=== PATIENT | male | born 1960 | race Caucasian/White ===

== ENCOUNTER 2017-02-14 06:30 | Day surgery (SDC) | payer BC ==
[~2017-02-14] VITALS: Ht 175.3 cm; Wt 98.4 kg
[~2017-02-14 06:30] MED LIST: ALEVE220 MG PO; ASPIR-LOW81 MG PO; ATENOLOL50 MG PO; NORVASC10 MG PO; OMEPRAZOLE20 MG PO; REVATIO20 MG PO; TYLENOL325 MG PO
--- NOTE | 2017-02-14 08:08 | NUR ---
02/14/17 0808 Marge Villegas REPORT FROM ENDO RN. AWAKE ON AND OFF ASKING QUESTIONS.
--- NOTE | 2017-02-16 16:42 | OR ---
[facility] [address] [facility], [place] [address] Signed DATE OF OPERATION: 02/14/2017 SURGEON: Ambrocio Guajardo MD PREOPERATIVE DIAGNOSIS: Screening. POSTOPERATIVE DIAGNOSIS: 1. 4 mm polyp at 25 cm. 2. 4 mm polyp at 6 cm. 3. Minimal sigmoid diverticulosis. 4. Minimal to moderate internal hemorrhoids. ESTIMATED BLOOD LOSS: None. INDICATIONS: Mari is a 57-year-old gentleman asked to see me for his initial screening colonoscopy. He has no lower GI complaints. There is no family history of colon cancer or polyps. In the office, I gave Mari a pamphlet on colonoscopy. We looked at that together and he understands the nature of the colonoscopy along with its risks including, but not limited to gas, bloating, crampy abdominal pain, bleeding, perforation requiring surgery, and missed diagnosis. He also understands the need for IV conscious sedation. He expressed understanding and wished to proceed. PROCEDURE NOTE: Mari was taken into our endoscopy suite and placed in the left lateral decubitus position. He was given preoperative antibiotics because of the amount of metal he has in his left leg after his sledding accident. After this, he was given divided doses of 9 mg of Versed and 175 mcg of Fentanyl. Even then, he woke up immediately upon termination of this procedure. Once he was adequately sedated, a digital rectal exam was performed and this was unremarkable including the prostate. The adult colonoscope was then introduced and advanced all the way around into the cecum under direct visualization of camera without difficulty. His prep was good. The scope was then slowly withdrawn. The 2 polyps were removed easily with hot biopsy forceps. We did see just a few diverticula in the sigmoid colon. They were moderate in size, few in number, and scattered about. Upon retroflexion of the scope in the rectum, he does have minimal to moderate standard internal hemorrhoid columns. After this, the gas was suctioned out and the colonoscope removed. Mari tolerated the procedure quite well. Electronically Signed By: AMBROCIO GUAJARDO MD 02/16/17 1642 PATIENT NAME: MARI HERNANDEZ OPERATIVE REPORT DATE OF : 60 PHYSICIAN: AMBROCIO GUAJARDO MD REPORT #: [id number] REPORT IS CONFIDENTIAL AND NOT TO BE RELEASED WITHOUT AUTHORIZATION [address] [address] Signed RECOMMENDATIONS: I will see Mari back in my office in 7-14 days to review his results. He can resume his aspirin in 1 week. MD VEDA Parsons/AMINATA /[id number] cc: Teressa Ortega PA-C Electronically Signed By: AMBROCIO GUAJARDO MD 02/16/17 1642 PATIENT NAME: MARI HERNANDEZ OPERATIVE REPORT DATE OF : 60 PHYSICIAN: AMBROCIO GUAJARDO MD REPORT #: [id number] REPORT IS CONFIDENTIAL AND NOT TO BE RELEASED WITHOUT AUTHORIZATION
== END 2017-02-14 08:55 | disposition home or self-care (01) ==
LOC: DS 06:30 → OPS 06:30 → DS 06:45 → OPS 08:55
PROVIDERS: Colon & Rectal Surgery
PROC: 0DBE8ZX Excision of Large Intestine, Via Natural or Artificial Opening Endoscopic, Diagnostic (ICD-10-PCS; principal; 2017-02-14 06:45)
DX: Z12.11 Encounter for screening for malignant neoplasm of colon (principal); K63.5 Polyp of colon; K57.30 Diverticulosis of large intestine without perforation or abscess without bleeding; K64.8 Other hemorrhoids; I10 Essential (primary) hypertension; K21.9 Gastro-esophageal reflux disease without esophagitis; E78.5 Hyperlipidemia, unspecified; E11.9 Type 2 diabetes mellitus without complications; Z98.890 Other specified postprocedural states; Z98.52 Vasectomy status; Z79.899 Other long term (current) drug therapy; Z79.82 Long term (current) use of aspirin
CPT/HCPCS: 99152; 99153; J2250; J3010; J7120

== ENCOUNTER 2017-05-26 20:42 | Emergency (ER) | payer OTHER ==
[~2017-05-26] VITALS: Ht 175.3 cm; Wt 99.8 kg
--- OUTSIDE RECORDS SUMMARY | 2017-05-26 20:47 | XMS | Clinical Summary ---
Demographics + + + | Address | [address] | | | [place] [address] | + + + | Home Phone | | + + + | Preferred Language | Unknown | + + + | Marital Status | | + + + | Jainism Affiliation | Unknown | + + + | Race | Unknown | + + + | Ethnic Group | Unknown | + + + Author + + + | Author | [facility] | + + + | Organization | [facility] | + + + | Address | Unknown | + + + | Phone | Unavailable | + + + Support + + + + + | Name | Relationship | Address | Phone | + + + + + | Meka Hernandez | ECON | [address] | | | | | [place] | | | | | [address] | | + + + + + Care Team Providers + +------+ + | Care Computer Programmer Name | Role | Phone | + +------+ + | Teressa Su | PP | Unavailable | + +------+ + Allergies No Known Allergies Current Medications + + + +---------+------+------+-------+ | Prescription | Sig. | Disp. | Refills | Star | End | Statu | | | | | | t | Date | s | | | | | | Date | | | + + + +---------+------+------+-------+ | omeprazole | Take 20 mg by mouth | | | | | Activ | | (PRILOSEC) 20 MG | every morning before | | | | | e | | capsule | breakfast. | | | | | | + + + +---------+------+------+-------+ | sildenafil | Take 20 mg by mouth | | | | | Activ | | (REVATIO) 20 MG | as needed. | | | | | e | | tablet | | | | | | | + + + +---------+------+------+-------+ | amLODIPine | Take 10 mg by mouth | | | | | Activ | | (NORVASC) 10 MG | daily. | | | | | e | | tablet | | | | | | | + + + +---------+------+------+-------+ | diazePAM (VALIUM) | Take 5 mg by mouth | | | | | Activ | | 5 MG tablet | every 8 (eight) | | | | | e | | | hours as needed for | | | | | | | | Anxiety. | | | | | | + + + +---------+------+------+-------+ | aspirin 81 MG | Take 81 mg by mouth | | | | | Activ | | tablet | daily. | | | | | e | + + + +---------+------+------+-------+ | ONETOUCH DELICA | | | | 01/3 | | Activ | | GRETTA 33G MISC | | | | 0/20 | | e | | | | | | 17 | | | + + + +---------+------+------+-------+ | ONE TOUCH ULTRA | | | | 01/3 | | Activ | | TEST test strip | | | | 0/20 | | e | | | | | | 17 | | | + + + +---------+------+------+-------+ | vitamin D2, | | | | 02/1 | | Activ | | ergocalciferol, | | | | 7/20 | | e | | [id number] units capsule | | | | 17 | | | + + + +---------+------+------+-------+ | ciprofloxacin | | | | 05/2 | | Activ | | (CIPRO) 500 MG | | | | 6/20 | | e | | tablet | | | | 17 | | | + + + +---------+------+------+-------+ | naproxen | Take 1 tablet by | 60 | 3 | 06 | | Activ | | (NAPROSYN) 500 MG | mouth 2 (two) times | tablet | | 11/07 | | e | | tablet | daily with meals. | | | 17 | | | + + + +---------+------+------+-------+ | POST-OP SHOE | Fit and instruct | 1 each | 0 | 07/21 | | Activ | | (medical | patient in use of | | | 0/20 | | e | | device)Indications: | device. | | | 17 | | | | Closed displaced | | | | | | | | bicondylar fracture | | | | | | | | of left tibia with | | | | | | | | routine healing, | | | | | | | | Traumatic | | | | | | | | compartment syndrome | | | | | | | | of left lower | | | | | | | | extremity, sequela, | | | | | | | | Disruption of | | | | | | | | external surgical | | | | | | | | wound, sequela | | | | | | | + + + +---------+------+------+-------+ | naproxen (EC | Take 1 tablet by | 60 | 11 | 08/0 | 08/0 | Activ | | NAPROSYN) 500 MG EC | mouth 2 (two) times | tablet | | 1/20 | 1/20 | e | | tabletIndications: | daily with meals. | | | 17 | 18 | | | Left leg pain | | | | | | | + + + +---------+------+------+-------+ | ANKLE FOOT | Fit and instruct | 1 each | 0 | 10/0 | | Activ | | ORTHOTIC (medical | patient in use of | | | 4/20 | | e | | device) | device. | | | 17 | | | + + + +---------+------+------+-------+ | Nerve Stimulator | 1 Device by Does not | 1 | 0 | 10/0 | | Activ | | (STANDARD TENS) KIRK | apply route 3 | Device | | 4/20 | | e | | | (three) times daily. | | | 17 | | | + + + +---------+------+------+-------+ | atenolol | | | | 12/0 | | Activ | | (TENORMIN) 50 MG | | | | 4/20 | | e | | tablet | | | | 17 | | | + + + +---------+------+------+-------+ | BONE STIMULATOR | Dispense and provide | 1 each | 0 | 03/0 | | Activ | | (medical educator) | instruction as | | | 6/20 | | e | | | needed. | | | 18 | | | + + + +---------+------+------+-------+ | clindamycin | Take 1 capsule by | 40 | 0 | 03/2 | 04/0 | Expir | | (CLEOCIN) 300 MG | mouth every 6 (six) | capsule | | 2/20 | 1/20 | ed | | capsule | hours for 10 days. | | | 18 | 18 | | | | With probiotics | | | | | | + + + +---------+------+------+-------+ + + +-------+ +------+------+-------+ | Hospital, Clinic, or | Ordered | Route | Frequency | Star | End | Statu | | Other Facility | Dose | | | t | Date | s | | Administered | | | | Date | | | | Medication | | | | | | | + + +-------+ +------+------+-------+ | lidocaine | | TP | PRN | 03/2 | 03/2 | Ended | | (XYLOCAINE) 4 % | | | | / | 20 | | | external solution | | | | 18 | 18 | | + + +-------+ +------+------+-------+ | lidocaine | | TP | PRN | 03/2 | 03/3 | Ended | | (XYLOCAINE) 4 % | | | | 11/07 | 0/20 | | | external solution | | | | 18 | 18 | | + + +-------+ +------+------+-------+ | lidocaine | | TP | PRN | 04/0 | 04/0 | Ended | | (XYLOCAINE) 4 % | | | | /20 | 6/20 | | | external solution | | | | 18 | 18 | | + + +-------+ +------+------+-------+ Active Problems + + + | Problem | Noted Date | + + + | Left leg swelling | 05/23/2017 | + + + | Skin ulcer of left calf, limited to breakdown of skin (HCC) | 05/09/2017 | + + + | Abscess of left leg | 05/09/2017 | + + + | Open wound of left lower leg | 05/09/2017 | + + + | HTN (hypertension) | 04/09/2017 | + + + | GERD (gastroesophageal reflux disease) | 04/09/2017 | + + + | Skin ulcer of left calf with fat layer exposed (HCC) | 04/09/2017 | + + + | Surgical wound, non healing | 04/09/2017 | + + + | Venous insufficiency | 04/09/2017 | + + + | Arthrofibrosis of knee joint | 07/06/2016 | + + + | Compartment syndrome of left lower extremity (HCC) | 02/23/2016 | + + + | Closed bicondylar fracture of left tibial plateau | 02/21/2016 | + + + Encounters +--------+ + + + + | Date | Type | Specialty | Care Team | Description | +--------+ + + + + | 05/23/ | Emergency | | Lamine Lainez, | Lower extremity | | 2017 | | | Jordy Patton | betty, franci, | | | | | MD Dylan | with unspecified | | | | | | severity (HCC) | | | | | | (Primary Dx) | +--------+ + + + + | 05/23/ | Office | | Teressa Su | Open wound of left | | 2017 | Visit | | JORGE Richardson, | lower leg, | | | | | Laureen Mathur MD | subsequent encounter | | | | | | (Primary Dx); Skin | | | | | | ulcer of left calf, | | | | | | limited to breakdown | | | | | | of skin ([facility]); | | | | | | Venous | | | | | | insufficiency; | | | | | | Non-healing surgical | | | | | | wound, subsequent | | | | | | encounter; Left leg | | | | | | swelling; Abscess of | | | | | | left leg | +--------+ + + + + | 05/23/ | Lab | | Alfredo Driscoll, | Non-healing surgical | | 2017 | Requisition | | Lettuce Cutter | wound, subsequent | | | | | | encounter; Open | | | | | | wound of left lower | | | | | | leg, subsequent | | | | | | encounter | +--------+ + + + + | 05/23/ | Orders Only | | Laureen Vogt, | Abscess of left leg | | 2018 | | | MD | (Primary Dx) | +--------+ + + + + | 05/16/ | Office | | Teressa Su | Skin ulcer of left | | 2018 | Visit | | JORGE Richardson, | calf, limited to | | | | | Laureen Mathur MD | breakdown of skin | | | | | | ([facility]) (Primary Dx); | | | | | | Open wound of left | | | | | | lower leg, | | | | | | subsequent | | | | | | encounter; Venous | | | | | | insufficiency; | | | | | | Non-healing surgical | | | | | | wound, subsequent | | | | | | encounter | +--------+ + + + + | 05/14/ | Telephone | | Vinicio Russell RN | | | 2017 | | | | | +--------+ + + + + | 05/09/ | Office | | Darrell Arce, | Closed displaced | | 2017 | Visit | | MD | bicondylar fracture | | | | | | of left tibia with | | | | | | nonunion, subsequent | | | | | | encounter (Primary | | | | | | Dx); Postoperative | | | | | | wound dehiscence, | | | | | | subsequent encounter | +--------+ + + + + | 05/09/ | Hospital | | Laureen Vogt, | Skin ulcer of left | | 2018 | Encounter | | MD | calf with fat layer | | | | | | exposed (HCC) | +--------+ + + + + | 05/09/ | Hospital | | Laureen Vogt, | Skin ulcer of left | | 2018 | Encounter | | MD | calf with fat layer | | | | | | exposed (HCC) | +--------+ + + + + | 05/09/ | Office | | Teressa Su | Skin ulcer of left | | 2018 | Visit | | JORGE Richardson, | calf, limited to | | | | | Laureen Mathur MD | breakdown of skin | | | | | | (HCC) (Primary Dx); | | | | | | Skin ulcer of left | | | | | | calf with fat layer | | | | | | exposed (HCC); | | | | | | Non-healing surgical | | | | | | wound, subsequent | | | | | | encounter; Venous | | | | | | insufficiency; | | | | | | Abscess of left leg; | | | | | | Open wound of left | | | | | | lower leg, initial | | | | | | encounter | +--------+ + + + + | 05/09/ | Lab | | Ida Garrido, | Skin ulcer of left | | 2017 | Requisition | | Lettuce Cutter | calf with fat layer | | | | | | exposed (HCC); | | | | | | Non-healing surgical | | | | | | wound, subsequent | | | | | | encounter | +--------+ + + + + | 05/09/ | Orders Only | | Laureen Vogt, | | | 2017 | | | MD | | +--------+ + + + + | 05/02/ | Telephone | | Darrell Arce, | | | 2017 | | | MD | | +--------+ + + + + | 04/26/ | Hospital | | See, Medical | Pain | | 2018 | Encounter | | Record | | +--------+ + + + + | 04/26/ | Ancillary | | See, Medical | Pain | | 2018 | Orders | | Record | | +--------+ + + + + | 04/24/ | Telephone | | Letha Arthur, | | | 2018 | | | VENDETTE | | +--------+ + + + + | 04/23/ | Office | | Teressa Su | Skin ulcer of left | | 2018 | Visit | | JORGE Richardson, | calf with fat layer | | | | | Laureen Mathur MD | exposed (HCC) | | | | | | (Primary Dx); | | | | | | Non-healing surgical | | | | | | wound, subsequent | | | | | | encounter; Venous | | | | | | insufficiency | +--------+ + + + + | 04/23/ | Office | | Darrell Arce, | Closed displaced | | 2018 | Visit | | MD | bicondylar fracture | | | | | | of left tibia with | | | | | | nonunion, subsequent | | | | | | encounter (Primary | | | | | | Dx) | +--------+ + + + + | 04/09/ | Hospital | | Laureen Vogt, | Skin ulcer of left | | 2017 | Encounter | | MD | calf with fat layer | | | | | | exposed (HCC) | +--------+ + + + + | 04/09/ | Office | | Teressa Su | Skin ulcer of left | | 2017 | Visit | | JORGE Richardson, | calf with fat layer | | | | | Laureen Mathur MD | exposed (HCC) | | | | | | (Primary Dx); | | | | | | Essential | | | | | | hypertension; | | | | | | Gastroesophageal | | | | | | reflux disease, | | | | | | esophagitis presence | | | | | | not specified; | | | | | | Non-healing surgical | | | | | | wound, initial | | | | | | encounter; Venous | | | | | | insufficiency | +--------+ + + + + | 04/09/ | Lab | | Alyson, Betty | Skin ulcer of left | | 2018 | Requisition | | J, Lettuce Cutter | calf with fat layer | | | | | | exposed (HCC) | +--------+ + + + + from Last 3 Months Family History + + +------+ + | Medical History | Relation | Name | Comments | + + +------+ + | Diabetes type II | Father | | | + + +------+ + | Heart defect | Father | | | + + +------+ + | Hypertension | Father | | | + + +------+ + | Malig hypertherm | Neg Hx | | | + + +------+ + + +------+--------+ + | Relation | Name | Status | Comments | + +------+--------+ + | Father | | Alive | | + +------+--------+ + | Mother | | Alive | | + +------+--------+ + Social History + +-------+ +--------+ + | Tobacco Use | Types | Packs/Day | Years | Date | | | | | Used | | + +-------+ +--------+ + | Former Smoker | | | | Quit: 11/23/2009 | + +-------+ +--------+ + + +---+---+---+ | Smokeless Tobacco: | | | | | Never Used | | | | + +---+---+---+ + + +---------+ + | Alcohol Use | Drinks/We | oz/Week | Comments | | | ek | | | + + +---------+ + | Yes | | | occasional | + + +---------+ + + + + | Sex Assigned at | Date Recorded | | | | + + + | Not on file | | + + + Last Filed Vital Signs + + + + | Vital Sign | Reading | Time Taken | + + + + | Blood Pressure | 133/77 | 05/23/2017 7:24 PM PDT | + + + + | Pulse | 65 | 05/23/2017 7:24 PM PDT | + + + + | Temperature | 36.9 C (98.5 F) | 05/23/2017 7:24 PM PDT | + + + + | Respiratory Rate | 18 | 05/23/2017 7:24 PM PDT | + + + + | Oxygen Saturation | 96% | 05/23/2017 7:24 PM PDT | + + + + | Inhaled Oxygen | - | - | | Concentration | | | + + + + | Weight | 98.9 kg (218 lb 0.6 | 05/23/2017 4:53 PM PDT | | | oz) | | + + + + | Height | 175.3 cm (5' 9") | 05/09/2017 11:41 AM PDT | + + + + | Body Mass Index | 32.2 | 05/23/2017 4:53 PM PDT | + + + + Plan of Treatment +--------+---------+ + + + | Date | Type | Specialty | Care Team | Description | +--------+---------+ + + + | 06/13/ | Office | | Teressa Su | | | 2017 | Visit | | JORGE Richardson [address] | | | | | | [address] [address] | | | | | | [place] [address] | | | | | | [phone] | | | | | | | | | | | | Laureen Vogt MD | | | | | | [address] | | | | | | [place] [address] | | | | | | [phone] | | | | | | | | +--------+---------+ + + + + + + + + | Health Maintenance | Due Date | Last Done | Comments | + + + + + | Vaccine: | | | | | Dtap/Tdap/Td (1 - | 9 | | | | Tdap) | | | | + + + + + | Colon Cancer | | | | | Screening | 0 | | | | (Colonoscopy) | | | | + + + + + | Vaccine: Influenza | | | | | (Season Ended) | 8 | | | + + + + + Implants + +------+--------+ +--------+--------+--------+ | Implanted | Type | Area | Manufacture | Device | Expira | Model | | | | | r | | tion | / | | | | | | Identi | Date | Serial | | | | | | fier | | / Lot | + +------+--------+ +--------+--------+--------+ | Screw Schanz S/T [id number] - | | Left: | SYNTHES - | | | 294.73 | | SnaImplanted: Qty: 2 on | | Leg | SYNT | | | / / | | 02/21/2016 by Claude, | | | | | | | | MD Darrell | | | | | | | + +------+--------+ +--------+--------+--------+ | Screw Schanz S/T [id number] - | | Left: | SYNTHES - | | | 294.75 | | SnaImplanted: Qty: 2 on | | Leg | SYNT | | | / / | | 02/21/2016 by Claude, | | | | | | | | MD Darrell | | | | | | | + +------+--------+ +--------+--------+--------+ | Post Fix Outrig 30deg 11mm - | | Left: | SYNTHES - | | | 390.01 | | [id number]: Qty: 4 on | | Leg | SYNT | | | 2 / / | | 02/21/2016 by Claude, | | | | | | | | MD Darrell | | | | | | | + +------+--------+ +--------+--------+--------+ | Screw Crtx Slf-Tp Strdr 2.4x9 | | Left: | SYNTHES - | | | 201.75 | | - Sn/AImplanted: Qty: 1 on | | Leg | SYNT | | | 9 | | 04/04/2016 by Claude, | | | | | | / | | MD Darrell | | | | | | 9 / | + +------+--------+ +--------+--------+--------+ | Screw Torie Slf-Tp Strdr 2.4x8 | | Left: | SYNTHES - | | | 212.80 | | - Sn/AImplanted: Qty: 2 on | | Leg | SYNT | | | 8 | | 04/04/2016 by Claude, | | | | | | /[id number] | | MD Darrell | | | | | | 8 / | + +------+--------+ +--------+--------+--------+ | Screw Torie Slf-Tp Strdr 2.4x9 | | Left: | SYNTHES - | | | 212.80 | | - Sn/AImplanted: Qty: 1 on | | Leg | SYNT | | | 9 | | 04/04/2016 by Claude, | | | | | | / | | MD Darrell | | | | | | 9 / | + +------+--------+ +--------+--------+--------+ | Screw Torie Slf-Tp Strdr 2.4x10 | | Left: | SYNTHES - | | | 212.81 | | - Sn/AImplanted: Qty: 2 on | | Leg | SYNT | | | 0 | | 04/04/2016 by Claude, | | | | | | /[id number] | | MD Darrell | | | | | | 0 /N/A | + +------+--------+ +--------+--------+--------+ | Screw Torie Slf-Tp Strdr 2.4x12 | | Left: | SYNTHES - | | | 212.81 | | - Sn/AImplanted: Qty: 1 on | | Leg | SYNT | | | 2 | | 04/04/2016 by Claude, | | | | | | / | | MD Darrell | | | | | | 2 / | + +------+--------+ +--------+--------+--------+ | Screw Torie Slf-Tp Strdr 2.4x14 | | Left: | SYNTHES - | | | 212.81 | | - Sn/AImplanted: Qty: 2 on | | Leg | SYNT | | | 4 | | 04/04/2016 by Claude, | | | | | | / | | MD Darrell | | | | | | 4 / | + +------+--------+ +--------+--------+--------+ | Screw Crtx T8 Strdr 2.7x20mm | | Left: | SYNTHES - | | | 202.88 | | - Sn/AImplanted: Qty: 1 on | | Leg | SYNT | | | 0 | | 04/04/2016 by Claude, | | | | | | / | | MD Darrell | | | | | | 0 / | + +------+--------+ +--------+--------+--------+ | Screw Crtx T8 Strdr 2.7x28mm | | Left: | SYNTHES - | | | 202.88 | | - Sn/AImplanted: Qty: 3 on | | Leg | SYNT | | | 8 | | 04/04/2016 by Claude, | | | | | | / | | MD Darrell | | | | | | 8 / | + +------+--------+ +--------+--------+--------+ | Screw Crtx T8 Strdr 2.7x30mm | | Left: | SYNTHES - | | | 202.89 | | - Sn/AImplanted: Qty: 1 on | | Leg | SYNT | | | 0 | | 04/04/2016 by Claude, | | | | | | / | | MD Darrell | | | | | | 0 / | + +------+--------+ +--------+--------+--------+ | Screw Torie Slf-Tp Strdr 2.7x10 | | Left: | SYNTHES - | | | 202.21 | | - Sn/AImplanted: Qty: 3 on | | Leg | SYNT | | | 0 | | 04/04/2016 by Claude, | | | | | | / | | MD Darrell | | | | | | 0 / | + +------+--------+ +--------+--------+--------+ | Screw Torie Slf-Tp Strdr 2.7x12 | | Left: | SYNTHES - | | | 202.21 | | - Sn/AImplanted: Qty: 1 on | | Leg | SYNT | | | 2 | | 04/04/2016 by Claude, | | | | | | / | | MD Darrell | | | | | | 2 / | + +------+--------+ +--------+--------+--------+ | Screw Crtx Slf-Tp Strdr | | Left: | SYNTHES - | | | 201.78 | | 2.4x32 - Sn/AImplanted: Qty: | | Leg | SYNT | | | 2 | | 1 on 04/04/2016 by Claude, | | | | | | / | | MD Darrell | | | | | | 2 / | + +------+--------+ +--------+--------+--------+ | Screw Torie Slf-Tp Strdr 2.4x11 | | Left: | SYNTHES - | | | 212.81 | | - Sn/AImplanted: Qty: 1 on | | Leg | SYNT | | | 1 | | 04/04/2016 by Claude, | | | | | | /[id number] | | MD Darrell | | | | | | 1 / | + +------+--------+ +--------+--------+--------+ | Screw Torie Slf-Tp Strdr 2.4x13 | | Left: | SYNTHES - | | | 212.81 | | - Sn/AImplanted: Qty: 1 on | | Leg | SYNT | | | 3 | | 04/04/2016 by Claude, | | | | | | /[id number] | | MD Darrell | | | | | | 3 / | + +------+--------+ +--------+--------+--------+ | Plate T Lcp 2.4 2h Hd 7h Shft | | Left: | SYNTHES - | | | 249.67 | | - Sn/AImplanted: Qty: 1 on | | Leg | SYNT | | | 0 | | 04/04/2016 by Claude, | | | | | | /[id number] | | MD Darrell | | | | | | 0 / | + +------+--------+ +--------+--------+--------+ | Screw Torie Slf-Tp Strdr 2.4x20 | | Left: | SYNTHES - | | | 212.82 | | - Sn/AImplanted: Qty: 1 on | | Leg | SYNT | | | 0 | | 04/04/2016 by Claude, | | | | | | / | | MD Darrell | | | | | | 0 / | + +------+--------+ +--------+--------+--------+ | Plate Tib Prox Sm 14h Lt | | Left: | SYNTHES - | | | 02.127 | | 237mm - Sn/AImplanted: Qty: 1 | | Leg | SYNT | | | .261 | | on 04/04/2016 by Claude, | | | | | | / | | MD Darrell | | | | | | 261 / | + +------+--------+ +--------+--------+--------+ | Screw Torie Slf-Tp Ss 3.5x46mm | | Left: | SYNTHES - | | | 212.13 | | - Sn.AImplanted: Qty: 1 on | | Leg | SYNT | | | 6 | | 04/04/2016 by Claude, | | | | | | / | | MD Darrell | | | | | | 6 / | + +------+--------+ +--------+--------+--------+ | Screw Torie Slf-Tp Ss 3.5x36mm | | Left: | SYNTHES - | | | 212.11 | | - Sn/AImplanted: Qty: 1 on | | Leg | SYNT | | | 5 | | 04/04/2016 by Claude, | | | | | | / | | MD Darrell | | | | | | 5 / | + +------+--------+ +--------+--------+--------+ | Screw Torie Slf-Tp Ss 3.5x40mm | | Left: | SYNTHES - | | | 212.11 | | - Sn/AImplanted: Qty: 1 on | | Leg | SYNT | | | 7 | | 04/04/2016 by Claude, | | | | | | / | | MD Darrell | | | | | | 7 / | + +------+--------+ +--------+--------+--------+ | Screw Torie Slf-Tp Ss 3.5x38mm | | Left: | SYNTHES - | | | 212.11 | | - Sn/AImplanted: Qty: 1 on | | Leg | SYNT | | | 6 | | 04/04/2016 by Claude, | | | | | | / | | MD Darrell | | | | | | 6 / | + +------+--------+ +--------+--------+--------+ | Chips Canc 30cc 1.7-10mm | | Left: | MUSCULOSKEL | | 08/12/ | [id number] | | zdr - | | Leg | ETAL | | 2018 | | | [id number]: | | | TRANSPLA - | | | /[id number] | | Qty: 1 on 04/04/2016 by | | | [facility] | | | [id number] | | Darrell Arce MD | | | | | | 420 / | + +------+--------+ +--------+--------+--------+ | Screw Crtx Slf-Tp Ss 3.5x30mm | | Left: | SYNTHES - | | | 204.83 | | - Sn/AImplanted: Qty: 1 on | | Leg | SYNT | | | 0 | | 04/04/2016 by Claude, | | | | | | / | | MD Darrell | | | | | | 0 / | + +------+--------+ +--------+--------+--------+ | Screw Crtx Slf-Tp Ss 3.5x32mm | | Left: | SYNTHES - | | | 204.83 | | - Sn/AImplanted: Qty: 1 on | | Leg | SYNT | | | 2 | | 04/04/2016 by Claude, | | | | | | / | | MD Darrell | | | | | | 2 / | + +------+--------+ +--------+--------+--------+ | Screw Crtx Slf-Tp Ss 3.5x26mm | | Left: | SYNTHES - | | | 204.82 | | - Sn/AImplanted: Qty: 3 on | | Leg | SYNT | | | 6 | | 04/04/2016 by Claude, | | | | | | / | | MD Darrell | | | | | | 6 / | + +------+--------+ +--------+--------+--------+ | Screw Strdrv Torie Slf-Tp | | Left: | SYNTHES - | | | 02.127 | | 3.5x28 - Sn/AImplanted: Qty: | | Leg | SYNT | | | .128 | | 3 on 04/04/2016 by Claude, | | | | | | / | | MD Darrell | | | | | | 128 / | + +------+--------+ +--------+--------+--------+ | Screw Strdrv Torie Slf-Tp | | Left: | SYNTHES - | | | 02.127 | | 3.5x65 - Sn/AImplanted: Qty: | | Leg | SYNT | | | .165 | | 1 on 04/04/2016 by Claude, | | | | | | / | | MD Darrell | | | | | | 165 / | + +------+--------+ +--------+--------+--------+ | Screw Strdrv Torie Slf-Tp | | Left: | SYNTHES - | | | 02.127 | | 3.5x70 - Sn/AImplanted: Qty: | | Leg | SYNT | | | .170 | | 1 on 04/04/2016 by Claude, | | | | | | /[id number] | | MD Darrell | | | | | | 170 /2 | + +------+--------+ +--------+--------+--------+ | Screw Strdrv Torie Slf-Tp | | Left: | SYNTHES - | | | 02.127 | | 3.5x75 - Sn/AImplanted: Qty: | | Leg | SYNT | | | .175 | | 1 on 04/04/2016 by Claude, | | | | | | /[id number] | | MD Darrell | | | | | | 175 / | + +------+--------+ +--------+--------+--------+ | Plate Tblr 02/20 Colr 3h 33mm - | | Left: | SYNTHES - | | | 241.33 | | Sn/AImplanted: Qty: 1 on | | Leg | SYNT | | | 1 | | 04/04/2016 by Claude, | | | | | | /[id number] | | MD Darrell | | | | | | 1 / | + +------+--------+ +--------+--------+--------+ | Nata Real Lg - | | Left: | MUSCULOSKEL | | 11/14/ | [id number] | | [id number]: Qty: 1 on | | Tibia | ETAL | | 2016 | | | 04/04/2016 by Claude, | | | TRANSPLA - | | | /[id number] | | MD Darrell | | | MUSC | | | [id number] | | | | | | | | [id number] | | | | | | | | 7 /NA | + +------+--------+ +--------+--------+--------+ | Cheryl Rodriguez Fix F/Sm Scrw 7mm | | Left: | SYNTHES - | | | 219.98 | | - Sn/AImplanted: Qty: 1 on | | Leg | SYNT | | | | | 04/04/2016 by Claude, | | | | | | /[id number] | | MD Darrell | | | | | | / | + +------+--------+ +--------+--------+--------+ | Screw Crtx Slf-Tp Ss 3.5x60mm | | Left: | SYNTHES - | | | 204.86 | | - Sn/AImplanted: Qty: 1 on | | Leg | SYNT | | | 0 | | 04/04/2016 by Claude, | | | | | | / | | MD Darrell | | | | | | 0 / | + +------+--------+ +--------+--------+--------+ | Screw Joey Vogt Slf-Tp | | Left: | SYNTHES - | | | 02.127 | | 3.5x40 - Sn/AImplanted: Qty: | | Leg | SYNT | | | .140 | | 1 on 04/04/2016 by Claude, | | | | | | /[id number] | | MD Darrell | | | | | | 140 / | + +------+--------+ +--------+--------+--------+ | Plate Lcp 2.4 4h 36mm - | | Left: | SYNTHES - | | | 249.67 | | SnaImplanted: Qty: 1 on | | Tibia | SYNT | | | 4 | | 04/04/2016 by Calude, | | | | | | /[id number] | | MD Darrell | | | | | | 4 / | + +------+--------+ +--------+--------+--------+ | Plate Lcp 2.4 5h 44mm - | | Left: | SYNTHES - | | | 247.37 | | SnaImplanted: Qty: 1 on | | Tibia | SYNT | | | 5 | | 04/04/2016 by Claude, | | | | | | /[id number] | | MD Darrell | | | | | | 5 / | + +------+--------+ +--------+--------+--------+ | Plate Lcp 2.7 4h 40mm - | | Left: | SYNTHES - | | | 249.68 | | SnaImplanted: Qty: 1 on | | Tibia | SYNT | | | 0 | | 04/04/2016 by Claude, | | | | | | /[id number] | | MD Darrell | | | | | | 0 / | + +------+--------+ +--------+--------+--------+ | Plate 2.4 2.7m Lckg Navicular | | Left: | SYNTHES - | | | 02.211 | | - SnaImplanted: Qty: 1 on | | Tibia | SYNT | | | .220 | | 04/04/2016 by Claude, | | | | | | /[id number] | | MD Darrell | | | | | | 220 / | + +------+--------+ +--------+--------+--------+ | Plat Rt Tib Med Prox | | Left: | SYNTHES - | | | 239.95 | | [id number] - [id number]: | | Leg | SYNT | | | 8 | | Qty: 1 on 04/04/2016 by | | | | | | /[id number] | | Darrell Arce MD | | | | | | 8 / | + +------+--------+ +--------+--------+--------+ Results Wound Culture (05/23/2017 7:22 PM)Only the most recent of 3 results within the time period is included. + + + + | Component | Value | Ref Range | + + + + | Specimen Description | OTHER | | + + + + | SPECIAL REQUESTS | LEFT PRETIB WOUND | | + + + + | CULTURE | NO GROWTH 2 DAYS | | + + + + + + + | Specimen | Performing Laboratory | + + + | Wound - [id number] | [facility] [address] [place], [place] [address]Basilia Graf, | | source desc (F6) | [place] [id number] | + + + US Lower extremity venous left (05/23/2017 7:07 PM) + + + | Specimen | Performing Laboratory | + + + | | NED SALAZAR [address] [place] [address] [place] [id number] | + + + + + | Impressions | + + | 1. No evidence of lower extremity deep vein thrombosis. 2. 4.1 x 4.9 x 2.1 cm | | presumed lymph node in the left groin region. Given the relatively large side of this | | structure, it would be be prudent to obtain a CT scan of the pelvis with contrast or | | even potentially an ultrasound-guided biopsy of this node to exclude any possibility of | | malignancy. | + + + + | Narrative | + + | JIMMY HERNANDEZ US LOWER EXTREMITY VENOUS DOPPLER LEFT 05/23/2017 7:07 PM HISTORY: | | 57 years. Male. Leg swelling. TECHNIQUE: Left lower extremity venous exam | | using grayscale, color Doppler and pulsed wave spectral Doppler techniques. | | COMPARISON: None. FINDINGS: Normal compressibility, augmentation of flow, and | | Doppler flow evident within the deep venous system. No evidence of deep venous | | thrombosis. A irregularly shaped heterogeneously hypoechoic mass is noted in the | | left groin superior to the common femoral vein measuring 4.1 x 4.9 x 2.1 cm. This | | appears to represent an enlarged lymph node. | + + + + | Procedure Note | + + | Derek, Rad Results In - 05/23/2017 7:20 PM FELIPE JIMENEZ LOWER EXTREMITY VENOUS | | DOPPLER LEFT05/23/2017 7:07 PMHISTORY:57 years. Male. Leg swelling.TECHNIQUE:Left lower | | extremity venous exam using grayscale, color Doppler and pulsed wave spectral Doppler | | techniques.COMPARISON:None.FINDINGS:Normal compressibility, augmentation of flow, and | | Doppler flow evident within the deep venous system. No evidence of deep venous | | thrombosis.A irregularly shaped heterogeneously hypoechoic mass is noted in the left | | groin superior to the common femoral vein measuring 4.1 x 4.9 x 2.1 cm. This appears to | | represent an enlarged lymph node.IMPRESSION:1. No evidence of lower extremity deep | | vein thrombosis.2. 4.1 x 4.9 x 2.1 cm presumed lymph node in the left groin region. | | Given the relatively large side of this structure, it would be be prudent to obtain a CT | | scan of the pelvis with contrast or even potentially an ultrasound-guided biopsy of | | this node to exclude any possibility of malignancy. | |FINDINGS: | |Normal compressibility, augmentation of flow, and Doppler flow evident within the deep veno us system. No evidence of deep venous thrombosis. | | | |A irregularly shaped heterogeneously hypoechoic mass is noted in the left groin superior to the common femoral vein measuring 4.1 x 4.9 x 2.1 cm. This appears to represent an enlarge d lymph node. | | | |IMPRESSION: | |1. No evidence of lower extremity deep vein thrombosis. | |2. 4.1 x 4.9 x 2.1 cm presumed lymph node in the left groin region. Given the relatively large side of this structure, it would be be prudent to obtain a CT scan of the pelvis with contrast or even potentially an | |ultrasound-guided biopsy of this node to exclude any possibility of malignancy. | | | | | + + CBC with differential (05/23/2017 5:33 PM) + + + + | Component | Value | Ref Range | + + + + | WBC | 10.78 | 3.80 - 11.00 K/uL | + + + + | RBC | 5.07 | 4.20 - 5.70 M/uL | + + + + | HGB | 15.1 | 13.2 - 17.0 g/dL | + + + + | HCT | 45.7 | 39.0 - 50.0 % | + + + + | MCV | 90.0 | 80.0 - 100.0 fl | + + + + | MCH | 29.9 | 27.0 - 34.0 pg | + + + + | MCHC | 33.2 | 32.0 - 35.5 g/dL | + + + + | RDW SD | 45.1 | 37 - 53 fl | + + + + | PLT | 284 | 150 - 400 K/uL | + + + + | MPV | 8.8 | fl | + + + + | DIFF TYPE | AUTOMATED | | + + + + | NEUTROPHILS | 64.86 | % | + + + + | LYMPHOCYTES | 19.78 | % | + + + + | MONOCYTES | 11.67 | % | + + + + | EOSINOPHILS | 2.77 | % | + + + + | BASOPHILS | 0.92 | % | + + + + | NEUTROPHILS ABS | 6.99 | 1.90 - 7.40 K/uL | + + + + | LYMPHOCYTES ABS | 2.13 | 1.00 - 3.90 K/uL | + + + + | MONOCYTES ABS | 1.26 (H) | 0.00 - 0.80 K/uL | + + + + | EOSINOPHILS ABS | 0.30 | 0.00 - 0.50 K/uL | + + + + | BASOPHILS ABS | 0.10Comment: Testing performed at [facility];888 | 0.00 - 0.10 K/uL | | | Tony Jacob;[place] [address] | | + + + + + + + | Specimen | Performing Laboratory | + + + | Blood | [facility] [address] [address] | + + + Comprehensive metabolic panel (05/23/2017 5:33 PM) + + + + | Component | Value | Ref Range | + + + + | SODIUM | 136 | 135 - 145 mmol/L | + + + + | POTASSIUM | 4.2Comment: MODERATE HEMOLYSIS | 3.5 - 4.9 mmol/L | + + + + | CHLORIDE | 104 | 99 - 109 mmol/L | + + + + | CO2 | 26 | 23 - 32 mmol/L | + + + + | ANION GAP AGAP | 10 | 5 - 20 mmol/L | + + + + | GLUCOSE | 96 | 65 - 99 mg/dL | + + + + | BUN | 14 | 8 - 25 mg/dL | + + + + | CREATININE | 0.92 | 0.70 - 1.30 mg/dL | + + + + | BUN/CREAT | 15 | | + + + + | CALCIUM | 8.9 | 8.5 - 10.5 mg/dL | + + + + | TOTAL PROTEIN | 10.0 (H) | 6.3 - 8.2 g/dL | + + + + | Albumin | 3.8 | 3.6 - 5.0 g/dL | + + + + | GLOBULIN | 6.2 (H) | 1.3 - 4.9 g/dL | + + + + | A/G | 0.6 (L) | 1.0 - 2.4 | + + + + | TBIL | 0.6 | 0.1 - 1.5 mg/dL | + + + + | ALK PHOS | 105 | 35 - 115 U/L | + + + + | AST | 30Comment: MODERATE HEMOLYSIS | 10 - 45 U/L | + + + + | ALT | 20 | 10 - 65 U/L | + + + + | EGFR | >60Comment: GFR <60: CHRONIC KIDNEY | >60 mL/min/1.73m2 | | | DISEASE, IF FOUND OVER A 3 MONTH PERIOD.GFR | | | | <15: KIDNEY FAILURE.FOR AMERICANS, | | | | MULTIPLY THE CALCULATED GFR BY | | | | 1.210.Testing performed at [facility];[address] [place] [address] | | | | [facility];[place] [address] | | | | | | + + + + + + + | Specimen | Performing Laboratory | + + + | Blood | [facility] [address] [place] [address] | + + + Ultrasound WILL resting (05/09/2017 11:25 AM) + + + | Specimen | Performing Laboratory | + + + | | [place] [address] | + + + + + | Impressions | + + | 1. Ankle brachial indices on both sides are only mildly suppressed, not compatible | | with high-grade stenosis | | 11:47 AM | + + + + | Narrative | + + | HISTORY: 57 year-old male with atherosclerotic vascular disease TECHNIQUE: | | Ultrasound interrogation of ankle-brachial indices and toe pressures Prior study for | | comparison: None FINDINGS: Mean right brachial pressure 138 mm Hg Mean left | | brachial pressure 134 mm Hg Right posterior tibial vessel measured 161 mmHg. | | Yielding an WILL of 1.17. Right dorsalis pedis vessel measured 145 mmHg. Yielding an WILL | | of 1.05. Left posterior tibial vessel measured 146 mmHg. Yielding an WILL of 1.06 . | | Left dorsalis pedis vessel measured 142 mmHg. Yielding an WILL of 1.03. Waveforms | | are triphasic throughout Toe pressures on the right demonstrated mildly suppressed, | | index of 0.6. Toe pressures on the left demonstrated mildly to moderate suppression. | | Index of 0.72. | + + + + | Procedure Note | + + | Derek, Rad Results In - 05/09/2017 11:52 AM PDT HISTORY: 57 year-old male with | | atherosclerotic vascular diseaseTECHNIQUE: Ultrasound interrogation of ankle-brachial | | indices and toe pressuresPrior study for comparison: NoneFINDINGS:Mean right brachial | | pressure 138 mm HgMean left brachial pressure 134 mm HgRight posterior tibial vessel | | measured 161 mmHg. Yielding an WILL of 1.17.Right dorsalis pedis vessel measured 145 | | mmHg. Yielding an WILL of 1.05.Left posterior tibial vessel measured 146 mmHg. Yielding | | an WILL of 1.06 .Left dorsalis pedis vessel measured 142 mmHg. Yielding an WILL of | | 1.03.Waveforms are triphasic throughoutToe pressures on the right demonstrated mildly | | suppressed, index of 0.6.Toe pressures on the left demonstrated mildly to moderate | | suppression. Index of 0.72.IMPRESSION:1. Ankle brachial indices on both sides are only | | mildly suppressed, not compatible with high-grade stenosis | | | |Left posterior tibial vessel measured 146 mmHg. Yielding an WILL of 1.06 . | |Left dorsalis pedis vessel measured 142 mmHg. Yielding an WILL of 1.03. | | | |Waveforms are triphasic throughout | | | |Toe pressures on the right demonstrated mildly suppressed, index of 0.6. | |Toe pressures on the left demonstrated mildly to moderate suppression. Index of 0.72. | | | |IMPRESSION: | | | |1. Ankle brachial indices on both sides are only mildly suppressed, not compatible with hig h-grade stenosis | | | | | + + CT knee left without contrast (04/25/2017 12:16 PM) + + + | Specimen | Performing Laboratory | + + + | | [facility] [place] [address] | + + + + + | Narrative | + + | This is a non-reportable procedure without a radiologist report and is used for | | image storage only | + + X-ray knee 3 views left (04/09/2017 12:12 PM) + + + | Specimen | Performing Laboratory | + + + | | [facility] [address] [place] [address] | + + + + + | Impressions | + + | 1. Debris with irregularity of the skin surface along the medial infrapatellar | | knee, probably in the region of the known ulcer. 2. Extensive medial and lateral | | plate and screw fixation of the proximal to mid tibia, with multiple bone fragments in | | the medial left tibial plateau, most of which do not appear united. 3. Medial | | downsloping of the medial tibial plateau, with varus angulation again noted. 4. Old | | healed proximal fibular metaphyseal fracture. 5. Small joint effusion. | | | + + + + | Narrative | + + | HISTORY: Skin ulcer of the left calf with fat layer exposed, with ulcer along the | | left upper medial tibial plateau medially. COMPARISON: 01/22/17. TECHNIQUE: | | AP, notch, lateral films of the left knee. FINDINGS: Moderate osteopenia. Extensive | | medial and lateral plate and screw fixation. Bone fragments are seen in the region of | | the medial tibial plateau, which demonstrate no definite evidence of union. Downsloping | | of the medial tibial plateau with prominent varus angulation at the knee again noted. | | Soft tissue ulceration is seen in the subcutaneous tissues just inferior to the knee, | | new, with opaque debris along the skin surface. Old healed fracture of the proximal | | fibular metaphysis. Marked osteopenia. Small joint effusion. | + + + -----+ | Procedure Note | + -----+ | Derek, Rad Results In - 04/09/2017 12:43 PM PST HISTORY:Skin ulcer of the left calf | | with fat layer exposed, with ulcer along the left upper medial tibial plateau | | medially.COMPARISON:01/22/17.TECHNIQUE:AP, notch, lateral films of the left | | knee.FINDINGS:Moderate osteopenia. Extensive medial and lateral plate and screw | | fixation. Bone fragments are seen in the region of the medial tibial plateau, which | | demonstrate no definite evidence of union. Downsloping of the medial tibial plateau with | | prominent varus angulation at the knee again noted. Soft tissue ulceration is seen in | | the subcutaneous tissues just inferior to the knee, new, with opaque debris along the | | skin surface. Old healed fracture of the proximal fibular metaphysis. Marked osteopenia. | | Small joint effusion.IMPRESSION:1. Debris with irregularity of the skin surface along | | the medial infrapatellar knee, probably in the region of the known ulcer.2. Extensive | | medial and lateral plate and screw fixation of the proximal to mid tibia, with multiple | | bone fragments in the medial left tibial plateau, most of which do not appear united.3. | | Medial downsloping of the medial tibial plateau, with varus angulation again noted.4. | | Old healed proximal fibular metaphyseal fracture.5. Small joint effusion.Electronically | | signed by Alfredo Gray MD on 04/09/2017 12:38 PM | |2. Extensive medial and lateral plate and screw fixation of the proximal to mid tibia, wit h multiple bone fragments in the medial left tibial plateau, most of which do not appear uni jovan. | |3. Medial downsloping of the medial tibial plateau, with varus angulation again noted. | |4. Old healed proximal fibular metaphyseal fracture. | |5. Small joint effusion. | | | | | + -----+ from Last 3 Months Insurance + +--------+ +------+-------+---------+ | Payer | Benefi | Subscriber | Type | Phone | Address | | | t Plan | ID | | | | | | / | | | | | | | Group | | | | | + +--------+ +------+-------+---------+ | [facility] | [employer] | xxxxxxxxx | | | | | | | | | | | | | HEALTH | | | | | | | CARE - | | | | | | | [facility] | | | | | + +--------+ +------+-------+---------+ + +--------+ +--------+ + + | Guarantor Name | [employer] | Relation to | Date | Phone | Billing Address | | | t Type | Patient | of | | | | | | | | | | + +--------+ +--------+ + + | JIMMY HERNANDEZ | Person | Self [birth year] Home: | [address] | | | al/Fam | | 1960 | [phone] [place] | | | [place] | | | [phone] | [phone] | + +--------+ +--------+ + +
--- OUTSIDE RECORDS SUMMARY | 2017-05-26 20:47 | XMS | Encounter Summary ---
Demographics + + + | Address | [address] | | | [place] [address] | + + + | Home Phone | | + + + | Preferred Language | Unknown | + + + | Marital Status | | + + + | Latter Day Affiliation | Unknown | + + + | Race | Unknown | + + + | Ethnic Group | Unknown | + + + Author + + + | Author | [facility] [employer] [facility] | + + + | Organization | [facility] | + + + | Address | Unknown | + + + | Phone | Unavailable | + + + Support + + + + + | Name | Relationship | Address | Phone | + + + + + | Meka Scott | ECON | [address] | | | | | [place] | | | | | [address] | | + + + + + Care Team Providers + +------+ + | Care Turret Punch Press Operator Name | Role | Phone | + +------+ + | Teressa Su | PCP | Unavailable | + +------+ + Encounter Details +--------+ + + + + | Date | Type | Department | Care Team | Description | +--------+ + + + + | 05/09/ | Orders Only | [facility] | Laureen Vogt, | | | 2017 | | Wound Care [address] | MD Ernie [address] | | | | | [place]. [place], [place] | [place] [address] | | | | | [address] | [phone] | | | | | | | | +--------+ + + + + Social History + +-------+ +--------+ + [...] on file | | + + + as of this encounter Plan of Treatment +--------+---------+ + + + | Date | Type | Specialty | Care Team | Description | +--------+---------+ + + + | 06/13/ | Office | Wound Care | Teressa Su | | | 2017 | Visit | | JORGE Richardson [address] | | | | | | [address] | | | | | | [place] [address] | | | | | | [phone] | | | | | | | | | | | | Laureen Vogt MD | | | | | | [address] [facility] | | | | | | [place] [address] | | | | | | [phone] | | | | | | | | +--------+---------+ + + + as of this encounter Visit Diagnoses Not on filein this encounter"
--- OUTSIDE RECORDS SUMMARY | 2017-05-26 20:47 | XMS | Encounter Summary ---
Demographics + + + | Address | [address] | | | [place] [address] | + + + | Home Phone | | + + + | Preferred Language | Unknown | + + + | Marital Status | | + + + | Scientology Affiliation | Unknown | + + + | Race | Unknown | + + + | Ethnic Group | Unknown | + + + Author + + + | Author | [facility] | + + + | Organization | [facility] | + + + | Address | Unknown | + + + | Phone | Unavailable | + + + Support + + + + + | Name | Relationship | Address | Phone | + + + + + | Meka Scott | ECON | [address] | | | | | [place] | | | | | [address] | | + + + + + Care Team Providers + +------+ + | Care Field Education Coordinator Name | Role | Phone | + +------+ + | Teressa Su | PCP | Unavailable | + +------+ + Reason for Visit + + + | Reason | Comments | + + + | Wound Check | | + + + | Dressing Change | | + + + | Follow-up | | + + + Consult and Treat (Routine) + +--------+ + + + + | Status | Reason | Specialty | Diagnoses / | Referred By | Referred To | | | | | Procedures | Contact | Contact | + +--------+ + + + + | Authorized | | Wound Care | Diagnoses | Sharlene, | [facility] Wound | | | | | Unspecified | Teressa Richardson, | [facility] | | | | | open wound, | [place] [address] | | | | | left lower | [address] | [address] | | | | | leg, initial | [place], | [place], [place] | | | | | encounter | [place] [address] | [address] Phone: | | | | | | Phone: | [phone] | | | | | | [phone] | Fax: | | | | | | Fax: | [phone] | | | | | | [phone] | | + +--------+ + + + + Encounter Details +--------+---------+ + + + | Date | Type | Department | Care Team | Description | +--------+---------+ + + + | 03/29/ | Office | [facility] | Teressa Su | Skin ulcer of left | | 2018 | Visit | Wound Care [address] | [place], [place] [address] | calf, limited to | | | | Blvd. [place], [place] | [address] | breakdown of skin | | | | [address] | [place] [address] | (HCC) (Primary Dx); | | | | | [phone] | Open wound of left | | | | | | lower leg, | | | | | Laureen Vogt MD | subsequent | | | | | [address] | encounter; Venous | | | | | [place] [address] | insufficiency; | | | | | [phone] | Non-healing surgical | | | | | | wound, subsequent | | | | | | encounter | +--------+---------+ + + + Social History + +-------+ [...] + + + as of this encounter Last Filed Vital Signs + + + + | Vital Sign | Reading | Time Taken | + + + + | Blood Pressure | 142/86 | 05/16/2017 3:00 PM PDT | + + + + | Pulse | 60 | 05/16/2017 3:00 PM PDT | + + + + | Temperature | 36.7 C (98 F) | 05/16/2017 3:00 PM PDT | + + + + | Respiratory Rate | 20 | 05/16/2017 3:00 PM PDT | + + + + | Oxygen Saturation | - | - | + + + + | Inhaled Oxygen | - | - | | Concentration | | | + + + + | Weight | - | - | + + + + | Height | - | - | + + + + | Body Mass Index | - | - | + + + + in this encounter Instructions Patient Instructions - Marianela Au RN - 05/16/2017 3:00 PM PDT YOUR TO DO LIST: (studies, labs, referrals, etc) 1. Call the [facility] Scheduling Department to make an appointment for your lower extremity u ltrasound studies at [phone]. TREATMENT BEFORE DOING WOUND CARE: To reduce your risk of infection please do the following. 1. Wash your hands. 2. Put on gloves. 3. Remove dressing. 4. Remove gloves. 5. Wash your hands. 6. Put on new gloves. Every Other Day / every 3rd day to the left MEDIAL leg wound: 1. Cleanse ulcer with DI- DAKSOL (0.0125%) Solution and rinse with Normal Saline or woun d cleanser. If residual zinc remains, may wipe off with mineral oil on a gauze pad. 2. Use sting free barrier wipe or spray to protect skin where tape is used. 3. Moisten a piece of Collagen and place it just inside the wound. 3. Put Wound Gel over the collagen 4. Cover with dry gauze. 5. Secure with roll gauze, & tape OR only tape, as appropriate. Every Other Day wound care TO RIGHT PRE-TIB: 1. Cleanse ulcer with DI- DAKSOL (0.0125%) Solution and rinse with or wound cleanser. If residual zinc remains, may wipe off with mineral oil on a gauze. 2. Then reapply protective barrier (zinc oxide-desitin like) around ulcer. (You need to purchase the zinc oxide cream also known as Desitin ). Use sting free barrier wipe or spray to protect skin where tape is used. 3. Put Wound Gel (SKINTEGRITY) on base of ulcer IF NEEDED. HOLD IF WOUND IS DRAINING HEA VILY. 4. Place a large enough piece of the AQUACEL SILVER into/over the ulcer that extends appro ximately 1 inch beyond ulcer edges. 5. Cover with dry gauze. 6. Secure with roll gauze, & tape OR only tape, as appropriate. NOTE: Compression Stockings/Tubigrips need to be put on as soon as you wake up. They shou ld be taken off at bedtime. They may be machine washed & dried. The doctor is requesting y ou wear a 2 Layer tubigrip that is equal to 16-20 mmHg compression. In order for tubigrip compression to be effective the proper length is from the base of the toes to 2 fin gers below the bend of the knee. PLEASE REMOVE IF YOUR TOES BECOME COLD, DISCOLORED, PAIN DEVELOPS, OR YOU ARE SHORT OF BREATH. WOUND CARE SUPPLIES: Please bring the following dressing supplies to each visit: DAKIN'S SOLUTION, SCISSORS On your initial visit you are being given a 3 day supply of dressings to treat your wound. We are unable to provide you with dressings beyond the 3 day period. Supply Resources: The chosen dressing supply company. [employer]. Local [employer] retail stores. Your chosen wound care dressing supply company is [employer]. Should you have any questions or concerns regarding your order please contact them at Per insurance guidelines , supplies may be ordered every 30 days. 0.9% NORMAL SALINE RECIPE: Dissolve 1 teaspoon salt in 2 cups boiling water. Allow to cool. Pour into container. Store in refrigerator no longer than 7 days. Dump out when one week old, or if left out of refrigerator for 24 hours. Return to clinic in __1__Week(s) for doctor visit. HELPS YOU TO HEAL: Adequate protein is important to enhance wound healing. Unless otherwise medically restric jovan please increase your daily dietary intake of protein. Examples of protein are: Chicken , fish, beef, nuts, beans, lentils, eggs, nut butters and supplemental drinks such as Ensure , Glucerna (for diabetic diet), Boost; or add powder to foods. SHOWERING/BATHING WITH OPEN WOUNDS: Should only be done if you are able to maintain the areas dry by covering them. If the areas are on your legs and/or feet that you cover with plastic, put footwear on that has treads on the bottoms. This helps reduce the risk of slipping on wet surfaces. Examples of this type of footwear are: Non-skid slipper socks, regular slippers, water satish es. Please dry your footwear between bathing sessions. Hygiene of general wound care: Avoid tap water cleansing. Do not expose your wound to satish wer/bath water. Cleanse wound with wound center recommended solutions only. Keep wound cov ered with prescribed dressing. Keep dressing clean and dry. Pressure Relief Information: Do not rub reddened areas over bony prominences. Avoid pressure on your wound. IMPORTANT REMINDERS: The wound center hours are Saturday thru Saturday 8 AM-4:30 PM. If you have deterioration of y our wound(s), increased pain, redness, swelling, unusual odor or discharge that does not res olve after cleaning, or temp > 100.4, report to the emergency room for further evaluation. Please arrive to your appointments on time. If you are more than 15 minutes late, the appoi ntment may need to be rescheduled. Please call us with 24 hour notice if you need to cancel or reschedule your appointment at . Please inform us if you are having or have had any recent wound surgeries, debridements or major procedures completed as soon as possible so that we may obtain records for the wound c are physician to review. A post-operative visit and clearance by the surgeon completing the procedure(s) will be needed prior to an appointment being scheduled with the wound center do ctor. in this encounter Progress Notes Vinicio Russell RN - 05/16/2017 3:00 PM PDTJimmy Scott is a 57 y.o. [facility] He presents accompanied by spouse. He arrived: Ambulatory. Transf er Assistance: Manual Patient identification verified: yes Secondary verification process completed: yes Patient in isolation precaution: na If yes, what kind?: na Fall Risk Assessment reviewed: yes Experienced any changes in pain level or management since last visit?: no Any signs or symptoms of abuse and/or neglect?: no Hospitalized since last visit: no Dressing in place as prescribed: yes Compression in place as prescribed: yes Offloading in place as prescribed: na Footwear in place on this visit: Regular Shoe: Laureen Hendrickson MD - 05/16/2017 3 :00 PM PDTFormatting of this note may be different from the original. Subjective: Jimmy Scott is a pleasant 57 y.o. male who presents for follow up for wound care for c hronic ulceration of left calf. he reports that the ulcer has been doing fairly well. he r eports that he has been compliant with his treatment regimen. No significant changes in PM Hx since last visit. Saw Dr. Arce and he agreed with the wound care here. The wound culture showed normal skin theresa. We did not get the CT but the patient discussed the CT with Dr. Arce. The WILL was do ne and the result showed: 1. Ankle brachial indices on both sides are only mildly suppressed, not compatible with hig h-grade stenosis The venous US has to be scheduled. Review of Systems Constitutional: No fatigue, sweats or weight loss HEENT: No visual changes, loss of vision, blurriness or sinus complaints Throat: No sore throat or stridor Lungs: No cough productive of blood GI: No blood in stools, no vomiting blood : No hematuria or urinary incontinence Skeletal: No swelling of joints, no atrophy of muscles, no loss of strength Skin: Ulcer left calf Neuro: No new loss of sensation in arms/legs, no new weakness, no seizures All systems reviewed and otherwise negative Pertinent items are noted in HPI. Objective: See above note for wound description and measurements. General appearance: alert, appears stated age and cooperative Skin: Ulcer left calf small with minimal slough and more granulation tissue under. Has a de pth of 2 mm to it and is located on a scar tissue. It is very small and less deep again. It is more dry and very small. No erythema, no odor, no discharge, no warmth. The ulcer is due to surgery and it is limited to skin breakdown now - no structures are seen. Has hyperpigme ntation left leg. Wound on upper pretibial area has some slough, granulation tissue and some depth. No erythe ma, no odor, no discharge, no warmth. The knee motility is not affected by the wound. The wo und is due to an abscess and it is with fat layer exposed due to the depth. No structtures a re seen. Pulses are present Left knee motility is normal Assessment / Plan: PROCEDURE: Excisional debridement medically necessary to accelerate wound healing. Excisional debride ment performed after appropriate topical anesthetic application as required, by using a 15 b lade scalpel to go into the level of the SQ tissue and remove fibrin/slough and necrotic as well as other nonviable and devitalized SQ tissue from the base of the ulcer. Rolled edges sharply excised. Pt had a small amount of bleeding controlled w/pressure. Pt tolerated proc edure well. See flowsheet for wound details (pre and post). No exposed tendon, muscle or bon e noted. Dressing applied by nursing. Pt to f/u as scheduled. 1.Ulcer left calf with limited to skin breakdown Surgical wound non healing - will apply pl ain Collagen every other day and wash with dakins. 2.Venous insufficiency - Tolerates 2 layer well. Will continue 2 layers. The compressions were on hold and will re-start the compressions - was advised to do the venous US. Keep legs elevated. 3.Wound left pretibial area with fat layer exposed - will continue Aquacel AG and wash wit h dakins. If more redness, if fever, chills or any acute symptoms please go to ED PATRICA! Can stop the Clinda when has 7 days of treatment. Visit diagnoses: Ulcer left calf limited to skin breakdown Surgical wound non healing Venous insufficiency Wound left pretibial area with fat layer exposed LAUREEN VOGT MD 05/16/2017 I am evaluating this patient for their wound care needs. They will continue to be seen and taken care of by their primary physician/Specialist and have their medications prescribed as well. See below for procedure(s) if applicable. LAUREEN VOGT MD 05/16/2017 in this encounter Plan of Treatment +--------+---------+ + + + | Date | Type | Specialty | Care Team | Description | +--------+---------+ + + + | 06/13/ Office | Wound Care | Teressa Su | | | 2017 | Visit | | JORGE Richardson [address] | | | | | [address] | | | | | | [place] [address] | | | | | | [phone] | | | | | | | | | | | | Laureen Vogt MD | | | | | | [address] [facility] | | | | | | [place] [address] | | | | | | [phone] | | | | | | | | +--------+---------+ + + + as of this encounter Visit Diagnoses + + | Diagnosis | + + | Skin ulcer of left calf, limited to breakdown of skin (HCC) - Primary | + + | Open wound of left lower leg, subsequent encounter | + + | Venous insufficiency | + + | Unspecified venous (peripheral) insufficiency | + + | Non-healing surgical wound, subsequent encounter | + + Admitting Diagnoses + + | Diagnosis | + + | Venous insufficiency | + + | Unspecified venous (peripheral) insufficiency | + + | Essential hypertension | + + | Unspecified essential hypertension | + + | Non-healing surgical wound, initial encounter | + + | Skin ulcer of left calf with fat layer exposed (HCC) | + + | Gastroesophageal reflux disease, esophagitis presence not specified | + + Administered Medications + +--------+ +------+------+------+ | Medication Order | MAR | Action | Dose | Rate | Site | | | Action | Date | | | | + +--------+ +------+------+------+ | lidocaine (XYLOCAINE) 4 % | Given | | | | | | external solution Starting Ida | | 8 15:23 | | | | | 05/16/17 at 1516, For 1 dose, | | PDT | | | | | Vinicio Russell : bogdan | | | | | | | override | | | | | | + +--------+ +------+------+------+ +---+---+ | | | +---+---+ in this encounter"
--- OUTSIDE RECORDS SUMMARY | 2017-05-26 20:47 | XMS | Encounter Summary ---
Demographics + + + | Address | [address] | | | [place] [address] | + + + | Home Phone | | + + + | Preferred Language | Unknown | + + + | Marital Status | | + + + | Tenriism Affiliation | Unknown | + + + | Race | Unknown | + + + | Ethnic Group | Unknown | + + + Author + + + | Author | [facility] | + + + | Organization | [facility] | + + + | Address | Unknown | + + + | Phone | Unavailable | + + + Support + + + + + | Name | Relationship | Address | Phone | + + + + + | Meka Scott | ECON | [address] | | | | | [place] | | | | | [address] | | + + + + + Care Team Providers + +------+ + | Care Stitch Rubber Name | Role | Phone | + [...] Wound Care | Diagnoses | Sharlene, | [facility] Wound | | | | | Unspecified | Teressa Richardson, | [facility] | | | | | open wound, | [place] [address] | [address] | | | | | left lower | [address] | [address] | | | | | leg, initial | [place], | [place], [place] | | | | | encounter | [place] [address] | [address] Phone: | | | | | | Phone: | [phone] | | | | | | [phone] | Fax: | | | | | | Fax: | [phone] | | | | | | [phone] | | + +--------+ + + + + Encounter Details +--------+---------+ + + + | Date | Type | Department | Care Team | Description | +--------+---------+ + + + | 04/05/ | Office | [facility] | Teressa Su | Open wound of left | | 2018 | Visit | Wound Care [address] | [place], [place] [address] | lower leg, | | | | Blvd[address] [place], [place] | [address] | subsequent encounter | | | | [address] | [place] [address] | (Primary Dx); Skin | | | | | [phone] | ulcer of left calf, | | | | | | limited to breakdown | | | | | Laureen Vogt MD | of skin ([facility]); | | | | | [address] | Venous | | | | | [place] [address] | insufficiency; | | | | | [phone] | Non-healing surgical | | | | | | wound, subsequent | | | | | | encounter; Left leg | | | | | | swelling; Abscess of | | | | | | left leg | +--------+---------+ + + + Social History [...] + + + as of this encounter Instructions Patient Instructions - Ronit Tapia RN - 05/23/2017 3:30 PM PDTPLEASE GO DIRECTLY TO THE EMERGENCY ROOM TO HAVE YOUR LEFT LEG WOUND, SWELLING, AND POSSIBLE ABSCESS ADDRESSED! T CALIN YOU! YOUR TO DO LIST: (studies, labs, referrals, etc) 1. Call the [facility] Scheduling Department to make an appointment for your lower extremity u ltrasound studies at [phone]. 2. A culture has been taken of your wound today. The results should be available in 3 to 5 days. We will notify you if there is a need for antibiotic treatment. 3. A referral has been made to [facility] Infectious Diseases: Dr Green, Dr. Justice / Dr Hunter. If you have not heard from their office in 2-3 days, please call their office to schedule an appointment. PHONE: [phone]. TREATMENT BEFORE DOING WOUND CARE: To reduce [...] & tape OR only tape, as appropriate. 7. Please do not wear your compressions at this time. We will address this at your next vi sit. WOUND CARE SUPPLIES: Please bring the following dressing supplies to each visit: DAKIN'S SOLUTION, SCISSORS On your initial visit you are being given a 3 day supply of dressings to treat your wound. We are unable to provide you with dressings beyond the 3 day period. Supply Resources: The chosen dressing supply company. [employer]. Local [employer] retail [employer]. Your chosen wound care dressing supply company is [employer]. Should you have any questions or concerns [...] do ctor. in this encounter Progress Notes Ronit Tapia RN - 05/23/2017 3:30 PM PDTJimmy Scott is a 57 y.o. male who presents today for Wound Care visit. He presents alone. He arrived: Ambulatory. Transfer Assistanc e: None Patient identification verified: yes Secondary verification process completed: yes Patient in isolation precaution: no If yes, what kind?: na Fall Risk Assessment reviewed: yes Experienced any changes in pain level or management since last visit?: no Any signs or symptoms of abuse and/or neglect?: no Hospitalized since last visit: no Dressing in place as prescribed: yes Compression in place as prescribed: no: Only wearing on layer of tubi Offloading in place as prescribed: yes Footwear in place on this visit: Regular Shoe: bilaterally Laureen Vogt MD - 05/23/2017 3:30 PM PDT Subjective: Jimmy Scott is a pleasant 57 y.o. male who presents for follow up for wound care for c hronic ulceration of left calf. he reports that the ulcer has been doing fairly well. he r eports that he has been compliant with his treatment regimen. No significant changes in PM Hx since last visit. We did not get the last CT and staff tried to call Dr. Arce's office for the CT copy - lef t a message. Review of Systems Constitutional: No fatigue, sweats [...] and cooperative Skin: Ulcer left calf small covered with crust small dry with minimal slough and more granu lation tissue under. It is very small and less deep again. It is more dry and very small. No erythema, no odor, no discharge, no warmth. The ulcer is due to surgery and it is limited to skin breakdown now - no structures are seen. Has hyperpigmentation left leg. Wound on upper pretibial area has some slough, granulation tissue and some depth. Has pocke ts of purulent material No erythema, no odor, no warmth, no crepitus no fluctuance around.. The wound is due to an abscess and it is with fat layer exposed due to the depth. No struc tures are seen. The leg is swollen with a more purple color. It is tender as well. Pulses are present Assessment / Plan: PROCEDURE A placed local Lidocaine and I used a number 15 scalpel - I did an incision in the middle a nd a small amount of purulent material was drained - about 1- 2 cc. A wound culture was done . Excisional debridement medically necessary to accelerate wound [...] breakdown Surgical wound non healing - will continue plain Collagen every other day and wash with dakins. 2.Venous insufficiency - Will hold the compressions now due to his leg being swollen. Keep legs elevated. 3.Wound left pretibial area with fat layer exposed/ abscess leg - will apply Aquacel AG but due to the new abscess, swollen leg I am affraid that he may have a deeper infection. A wou nd culture was done and an ID referral was done but I think that with his hx of compartiment syndrome he will need assessment right away. I called ED and I spoke with the nurse in [facility]. I explained the case and thy will see the patient there. An antibiotic was not ordered b ecause the patient will be seen in ED. He agreed to go , he is stable and will go to ED by private car. Visit diagnoses: Ulcer left calf limited to skin breakdown Surgical wound non healing Venous insufficiency Wound left pretibial area with fat layer exposed Leg swelling Abscess leg LAUREEN VOGT MD 05/23/2017 I am evaluating this patient for their wound care needs. They will continue to be seen and taken care of by their primary physician/Specialist and have their medications prescribed as well. See below for procedure(s) if applicable. LAUREEN VOGT MD 05/23/2017 in this encounter Plan of Treatment +--------+---------+ + + + | Date | Type | Specialty | Care Team | Description | +--------+---------+ + + + | 06/13/ | Office | Wound Care | Teressa Su | | | 2017 | Visit | | [address]GE [address] | | | | | [address] | | | | | | [place] [address] | | | | | | [phone] | | | | | | | | | | | | Laureen Vogt MD | | | | | | [address] [facility] | | | | | | [place] [address] | | | | | | [phone] | | | | | | | | +--------+---------+ + + + as of this encounter Results Wound Culture (05/23/2017 7:22 PM) + + + + | Component [...] + + | Wound - [id number]-[id number] | [facility] [address] [place], [place] [address]vd. [place], | | source desc (F6) | [place] [address] | + + + in this encounter Visit Diagnoses + + | Diagnosis | + + | Open wound of left lower leg, subsequent encounter - Primary | + + | Skin ulcer of left calf, limited to breakdown of skin (HCC) | + + | Venous insufficiency | + + | Unspecified venous (peripheral) insufficiency | + + | Non-healing surgical wound, subsequent encounter | + + | Left leg swelling | + + | Abscess of left leg | + + | Cellulitis and abscess of leg, except foot | + + Admitting Diagnoses + + [...] lidocaine (XYLOCAINE) 4 % | Given | 05/23/2017 | | | | | external solution Topical, PRN, | | 15:29 | | | | | Wound Care, Starting [facility] 05/23/17 | | PDT | | | | | at 1528, For 1 day | | | | | | + +--------+ +------+------+------+ +---+---+ | | | +---+---+ in this encounter"
--- OUTSIDE RECORDS SUMMARY | 2017-05-26 20:47 | XMS | Encounter Summary ---
Demographics + + + | Address | [address] | | | [place] [address] | + + + | Home Phone | | + + + | Preferred Language | Unknown | + + + | Marital Status | | + + + | Worship Affiliation | Unknown | + + + | Race | Unknown | + + + | Ethnic Group | Unknown | + + + Author + + + | Author | [facility] | + + + | Organization | [facility] | + + + | Address | Unknown | + + + | Phone | Unavailable | + + + Support + + + + + | Name | Relationship | Address | Phone | + + + + + | Meka Scott | ECON | [address] | | | | | [place] | | | | | [address] | | + + + + + Care Team Providers + +------+ + | Care Coupon Collection Clerk Name | Role | Phone | + +------+ + | Teressa Su | PCP | Unavailable | + +------+ + Reason for Referral Consultation (Routine) + + + + + + + | Status | Reason | Specialty | Diagnoses / | Referred By | Referred To | | | | | Procedures | Contact | Contact | + + + + + + + | Authorized | Specialty | Infectious | Diagnoses | Miesha Vogt | | | Services | Diseases | Abscess of | Laureen Mathur MD | Infectious | | | Required | | left leg | [address] | [address] | | | | [address] | [address] | | | | | | [place], [place] | [facility] [place] | | | | | | [address] | [address] | | | | | | Phone: | [place] | | | | | | [phone] | [address] Phone: | | | | | | Fax: | [phone] | | | | | | [phone] | Fax: | | | | | | | [phone] | + + + + + + + Encounter Details +--------+ + + + + | Date | Type | Department | Care Team | Description | +--------+ + + + + | /05/ | Orders Only | [facility] | Laureen Vogt, | Abscess of left leg | | 2018 | | Wound Care [address] | MD [address] | (Primary Dx) | | | | Blvd. [place], [place] | [place] [address] | | | | | [phone] | [phone] | | | | | | | [...] 2017 | Visit | | JORGE Richardson [address] | | | | | | [address] | | | | | | [place] [address] | | | | | | [phone] | | | | | | | | | | | | Laureen Vogt MD | | | | | | [address] [facility] | | | | | | [facility] [address] | | | | | | [phone] | | | | | | | | +--------+---------+ + + + + +--------+ + + | Name | Priori | Associated Diagnoses | Order Schedule | | | ty | | | + +--------+ + + | Ambulatory referral to Infectious | Routin | Abscess of left | Ordered: 05/23/2017 | | Disease | e | leg | | + +--------+ + + as of this encounter Visit Diagnoses + + | Diagnosis | + + | Abscess of left leg - Primary | + + | Cellulitis and abscess of leg, except foot | + +"
--- OUTSIDE RECORDS SUMMARY | 2017-05-26 20:47 | XMS | Encounter Summary ---
Demographics + + + | Address | [address] | | | [place] [address] | + + + | Home Phone | | + + + | Preferred Language | Unknown | + + + | Marital Status | | + + + | Zoroastrianism Affiliation | Unknown | + + + | Race | Unknown | + + + | Ethnic Group | Unknown | + + + Author + + + | Author | [facility] | + + + | Organization | [facility] | + + + | Address | Unknown | + + + | Phone | Unavailable | + + + Support + + + + + | Name | Relationship | Address | Phone | + + + + + | Meka Scott | ECON | [address] | | | | | [place] | | | | | [address] | | + + + + + Care Team Providers + +------+ + | Care Dynamite Packing Machine Feeder Name | Role | Phone | + +------+ + | Teressa Su | PCP | Unavailable | + +------+ + Encounter Details +--------+ + + + + | Date | Type | Department | Care Team | Description | +--------+ + + + + | 05/23/ | Lab | [facility] | Alfredo Driscoll, | Non-healing surgical | | 2018 | Requisition | [address]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, | | source desc (F6) | [place] [address] | + + + in this encounter Visit Diagnoses + + | Diagnosis | + + | Non-healing surgical wound, subsequent encounter | + + | Open wound of left lower leg, subsequent encounter | + +"
--- OUTSIDE RECORDS SUMMARY | 2017-05-26 20:47 | XMS | Encounter Summary ---
Demographics + + + | Address | [address] | | | [place] [address] | + + + | Home Phone | | + + + | Preferred Language | Unknown | + + + | Marital Status | | + + + | Faith Affiliation | Unknown | + + + | Race | Unknown | + + + | Ethnic Group | Unknown | + + + Author + + + | Author | [facility] | + + + | Organization | [facility] | + + + | Address | Unknown | + + + | Phone | Unavailable | + + + Support + + + + + | Name | Relationship | Address | Phone | + + + + + | Meka Scott | ECON | [address] | | | | | [place] | | | | | [address] | | + + + + + Care Team Providers + +------+ + | Care Almond Huller Name | Role | Phone | + +------+ + | Teerssa Su | PCP | Unavailable | + +------+ + Encounter Details +--------+ + + + + | Date | Type | Department | Care Team | Description | +--------+ + + + + | 05/09/ | Hospital | [facility] | Laureen Vogt, | Skin ulcer of left | | 2018 | Encounter | [facility] | [address] | calf with fat layer | | | | Ultrasound [address] | [place] [address] | exposed (HCC) | | | | [address] | [phone] | | | | | [place] [address] | | | | | | [phone] | | | +--------+ + + + [...] + + + as of this encounter Medications at Time of Discharge + + + +---------+ + + | Medication | Sig. | Disp. | Refills | Start | End Date | | | | | | Date | | + + + +---------+ + + | amLODIPine | Take 10 mg by mouth | | | | | | (NORVASC) 10 MG | daily. | | | | | | tablet | | | | | | + + + +---------+ + + | ANKLE FOOT | Fit and instruct | 1 each | 0 | 11/22/19 | | | ORTHOTIC (medical | patient in use of | | | 17 | | | device) | device. | | | | | + + + +---------+ + + | aspirin 81 MG | Take 81 mg by mouth | | | | | | tablet | daily. | | | | | + + + +---------+ + + | atenolol | | | | 01/22/20 | | | (TENORMIN) 50 MG | | | | 17 | | | tablet | | | | | | + + + +---------+ + + | BONE STIMULATOR | Dispense and provide | 1 each | 0 | 04/24/19 | | | (emergency medical service coordinator) | instruction as | | | 18 | | | | needed. | | | | | + + + +---------+ + + | ciprofloxacin | | | | 07/14/19 | | | (CIPRO) 500 MG | | | | 17 | | | tablet | | | | | | + + + +---------+ + + | diazePAM (VALIUM) | Take 5 mg by mouth | | | | | | 5 MG tablet | every 8 (eight) | | | | | | | hours as needed for | | | | | | | Anxiety. | | | | | + + + +---------+ + + | naproxen (EC | Take 1 tablet by | 60 | 11 | 09/19/19 | | | NAPROSYN) 500 MG EC | mouth 2 (two) times | tablet | | 17 | 8 | | tabletIndications: | daily with meals. | | | | | | Left leg pain | | | | | | + + + +---------+ + + | naproxen | Take 1 tablet by | 60 | 3 | 08/17/19 | | | (NAPROSYN) 500 MG | mouth 2 (two) times | tablet | | 17 | | | tablet | daily with meals. | | | | | + + + +---------+ + + | Nerve Stimulator | 1 Device by Does not | 1 | 0 | 11/22/19 | | | (STANDARD TENS) KIRK | apply route 3 | Device | | 17 | | | | (three) times daily. | | | | | + + + +---------+ + + | omeprazole | Take 20 mg by mouth | | | | | | (PRILOSEC) 20 MG | every morning before | | | | | | capsule | breakfast. | | | | | + + + +---------+ + + | ONE TOUCH ULTRA | | | | 03/19/19 | | | TEST test strip | | | | 17 | | + + + +---------+ + + | JESSICA KING | | | | 03/19/19 | | | GRETTA 33G MISC | | | | 17 | | + + + +---------+ + + | POST-OP SHOE | Fit and instruct | 1 each | 0 | 08/18/19 | | | (medical | patient in use of | | | 17 | | | device)Indications: | device. | | | | | | Closed displaced | [...] sequela | | | | | | + + + +---------+ + + | sildenafil | Take 20 mg by mouth | | | | | | (REVATIO) 20 MG | as needed. | | | | | | tablet | | | | | | + + + +---------+ + + | vitamin D2, | | | | 04/06/19 | | | ergocalciferol, | | | | 17 | | | 22958 units capsule | | | | | | + + + +---------+ + + | clindamycin | Take 1 capsule by | 40 | 0 | 05/10/19 | | | (CLEOCIN) 300 MG | mouth every 6 (six) | capsule | | 18 | 8 | | capsule | hours for 10 days. | | | | | | | With probiotics | | | | | + + + +---------+ + + as of this encounter Plan of Treatment +--------+---------+ + + + | Date | Type | Specialty | Care Team | Description | +--------+---------+ + + + | 06/13/ | Office | Wound Care | Teressa Su | | | 2017 | Visit | | [address] | | | | | | [address] | | | | | | [place] [address] | | | | | | [phone] | | | | | | | | | | | | Laureen Vogt MD | | | | | | [address] | | | | | | [place] [address] | | | | | | [phone] | | | | | | | | +--------+---------+ + + + as of this encounter Results Ultrasound WILL resting (05/09/2017 11:25 AM) + + + | Specimen | Performing Laboratory | + + + | | [facility] [address] [place] [address] | + + + + + | [...] | Procedure Note | + + | Raoul Reed In 05/09/2017 11:52 AM PDT HISTORY: 57 year-old [...] | | | | | + + in this encounter Visit Diagnoses + + | Diagnosis | + + | Skin ulcer of left calf with fat layer exposed (HCC) | + +"
--- OUTSIDE RECORDS SUMMARY | 2017-05-26 20:47 | XMS | Encounter Summary ---
Demographics + + + | Address | [address] | | | [place] [address] | + + + | Home Phone | | + + + | Preferred Language | Unknown | + + + | Marital Status | | + + + | Restoration Affiliation | Unknown | + + + | Race | Unknown | + + + | Ethnic Group | Unknown | + + + Author + + + | Author | [facility] [employer] | + + + | Organization | [facility] | + + + | Address | Unknown | + + + | Phone | Unavailable | + + + Support + + + + + | Name | Relationship | Address | Phone | + + + + + | Meka Scott | ECON | [address] | | | | | [place] | | | | | [address] | | + + + + + Care Team Providers + +------+ + | Care Online Marketing Coordinator Name | Role | Phone | + +------+ + | Teressa Su | PCP | Unavailable | + +------+ + Reason for Visit + + + | Reason | Comments | + + + | Follow-up | Ct results Lt leg | + + + Surgical (Routine) + +--------+ + + + + | Status | Reason | Specialty | Diagnoses / | Referred By | Referred To | | | | | Procedures | Contact | Contact | + +--------+ + + + + | Authorized | | Orthopedic | Diagnoses | Self, | [facility] | | | | Surgery | Fracture | Referred | [address] | | | | | tibia/fibula | Phone: | [address] | | | | | , left, | [phone] | [place], [place] | | | | | closed, | Fax: | [address] | | | | | initial | [phone] | Phone: | | | | | encounter | | [phone] | | | | | fup lt | | Fax: | | | | | tib/fib dos | | [phone] | | | | | 07/04 10 week | | | | | | | | | | | | | | Procedures | | | | | | | ORTHO FOLLOW | | | | | | | UP | | | + +--------+ + + + + Encounter Details +--------+---------+ + + + | Date | Type | Department | Care Team | Description | +--------+---------+ + + + | 05/09/ | Office | [facility] | Darrell Arce, | Closed displaced | | 2018 | Visit | [facility] | MD [address] | bicondylar fracture | | | | [facility] | [place], [place] | of left tibia with | | | | [address] | [phone] | nonunion, subsequent | | | | [place], [place] | [phone] | encounter (Primary | | | | [address] | | Dx); Postoperative | | | | [phone] | | wound dehiscence, | | | | | | subsequent encounter | +--------+---------+ + + + Social [...] + + + | Blood Pressure | - | - | + + + + | Pulse | - | - | + + + + | Temperature | - | - | + + + + | Respiratory Rate | - | - | + + + + | Oxygen Saturation | - | - | + + + + | Inhaled Oxygen | - | - | | Concentration | | | + + + + | Weight | 97.1 kg (214 lb) | 05/09/2017 11:41 AM PDT | + + + + | Height | 175.3 cm (5' 9") | 05/09/2017 11:41 AM PDT | + + + + | Body Mass Index | 31.6 | 05/09/2017 11:41 AM PDT | + + + + in this encounter Instructions Patient Instructions - Darrell Arce MD - 05/09/2017 2:45 PM PDTContinue with local w ound care. OK to use your leg as tolerated without favoring it too much We will need to consider future revision fixation, likely with a small wire frame in the fu ture Please call with any questions or concerns, or if your plan of care is not clear to you. in this encounter Progress Notes Darrell Arce MD - 05/09/2017 2:45 PM PDTFormatting of this note may be different fro m the original. 05/09/2017 CC: Left tibia fracture Interval History Patient presents to the office s/p Lt knee and to follow up on his CT results. Relates lev el of pain as 1-2/10 in severity. Pain is located at the Lt knee. Patient states he does n ot have any abnormal numbness or tingling. Patient reports he has a new abscess right below his Lt knee that appeared on 05/04/17, patient reports it is not very painful but the absces s just opened today. Jimmy presents back to the office for follow-up regarding his left tibial plateau. He had a pleasant trip to vacation and vacation to [place]. Unfortunately during that time he develop ed a large anterior wound approximately 2 x 2 centimeters in diameter that ultimately erupte d. He was seen by wound care were was packed and cultured this morning. He also was able to get his CT scan and is here for follow-up of that as well as long-term planning. Denies any systemic issues such as fevers, chills, new numbness or tingling. ROS Review of Systems All other systems reviewed and are negative. Current Medications Current Outpatient Prescriptions: amLODIPine (NORVASC) 10 MG tablet, Take 10 mg by mouth daily., Disp: , Rfl: ANKLE FOOT ORTHOTIC (chief medical officer), Fit and instruct patient in use of device., Disp : 1 each, Rfl: 0 aspirin 81 MG tablet, Take 81 mg by mouth daily., Disp: , Rfl: atenolol (TENORMIN) 50 MG tablet, , Disp: , Rfl: BONE STIMULATOR (chief medical officer), Dispense and provide instruction as needed., Disp: 1 each, Rfl: 0 ciprofloxacin (CIPRO) 500 MG tablet, , Disp: , Rfl: clindamycin (CLEOCIN) 300 MG capsule, Take 1 capsule by mouth every 6 (six) hours for 10 days. With probiotics, Disp: 40 capsule, Rfl: 0 diazePAM (VALIUM) 5 MG tablet, Take 5 mg by mouth every 8 (eight) hours as needed for Anxiety., Disp: , Rfl: naproxen (EC NAPROSYN) 500 MG EC tablet, Take 1 tablet by mouth 2 (two) times daily wi th meals., Disp: 60 tablet, Rfl: 11 naproxen (NAPROSYN) 500 MG tablet, Take 1 tablet by mouth 2 (two) times daily with chris ls., Disp: 60 tablet, Rfl: 3 Nerve Stimulator (STANDARD TENS) KIRK, 1 Device by Does not apply route 3 (three) time s daily., Disp: 1 Device, Rfl: 0 omeprazole (PRILOSEC) 20 MG capsule, Take 20 mg by mouth every morning before breakfas t., Disp: , Rfl: ONE TOUCH ULTRA TEST test strip, , Disp: , Rfl: ONETOUCH DELICA LANCETS 33G [facility], , Disp: , Rfl: POST-OP SHOE (chief medical officer), Fit and instruct patient in use of device., Disp: 1 eac h, Rfl: 0 sildenafil (REVATIO) 20 MG tablet, Take 20 mg by mouth as needed., Disp: , Rfl: vitamin D2, ergocalciferol, 43983 units capsule, , Disp: , Rfl: Current Facility-Administered Medications: lidocaine (XYLOCAINE) 4 % external solution, , Topical, PRN, Laureen Vogt MD Allergies No Known Allergies Vital Signs There were no vitals filed for this visit. Physical Exam L knee- 2 x 2 centimeter wound over the anterior aspect of his proximal tibia that had alre anupama been ruptured. A small amount of 0. Lymph material was able to be expressed from the edg es of the wound. There is no knee effusion and he has baseline painful motion of the knee. H is medial wound is nearly completely healed. Radiology Ultrasound Kamala Resting Result Date: 05/09/2017 HISTORY: 57 year-old male with atherosclerotic vascular disease TECHNIQUE: Ultrasound inter rogation of ankle-brachial indices and toe pressures Prior study for comparison: None FINDIN GS: Mean right brachial pressure 138 mm Hg Mean left brachial pressure 134 mm Hg Right poste rior tibial vessel measured 161 mmHg. Yielding an KAMALA of 1.17. Right dorsalis pedis vessel m easured 145 mmHg. Yielding an KAMALA of 1.05. Left posterior tibial vessel measured 146 mmHg. Y ielding an KAMALA of 1.06 . Left dorsalis pedis vessel measured 142 mmHg. Yielding an KAMALA of 1. 03. Waveforms are triphasic throughout Toe pressures on the right demonstrated mildly suppre ssed, index of 0.6. Toe pressures on the left demonstrated mildly to moderate suppression. I ndex of 0.72. 1. 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 There is extensive hardware artifact complicating the imaging. Assessment and Plan ICD-10-CM 1. 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 Postoperative wound dehiscence, subsequent encounter T81.31XD Patient is now 15 months out from a complex comminuted intra-articular proximal left tibia fracture. Unfortunately this is been complicated by compartment syndrome, multiple wound hea ling problems now with a new wound anteriorly. The CT confirmed our suspicion that there is at least a nonunion in the proximal tibia of the Help to Identify Where There Is Some Increa sing Pain. Part of My Other Concern Now Is That He Has Multiple Wounds That It Popped up ove r the past Few Months Sporadically Which I Fear May Be Coming from an Underlying Bone Infect ion. Overall His Soft Tissues Continue to Slightly Improve Each and Every Time We See Him an d I Would Hate to Limit the Progress of His Soft Tissues by intervening too quickly. We disc ussed this at length and he understands that the plan would be ongoing conservative care in hopes that the nerve will completely recover and that his soft tissues will continue to impr ove and his muscles will repeat brain strength in the anterior compartment. Ultimately I fea r that the nonunion will require revision fixation with bone grafting either from his hip or his femur or both. My intent would be during the nonunion surgery to use a small wire frame so that he could maintain weightbearing status. Ultimately the long-term plan is for once t he bone is healed to convert him to a total knee arthroplasty. We are at least a year and a half away from that I believe. I will see him back in approximately 3 months unless he has i ssues that I can help him with before that No orders of the defined types were placed in this encounter. Requested Prescriptions No prescriptions requested or ordered in this encounter Return in about 3 months (around 08/09/2017). Patient Instructions Continue with local wound care. OK to use your leg as tolerated without favoring it too much We will need to consider future revision fixation, likely with a small wire frame in the fu ture Please call with any questions or concerns, or if your plan of care is not clear to you. Xrays next visit: 2 views left knee Darrell Arce MDin this encounter Plan of Treatment +--------+---------+ + + + | Date | Type | Specialty | Care Team | Description | +--------+---------+ + + + | 06/13/ | Office | Wound Care | Teressa Su | | | 2017 | Visit | | [address] | | | | | | [address] | | | | | | [place] [address] | | | | | | [phone] | | | | | | | | | | | | Laureen Vogt MD | | | | | | [address] [facility] | | | | | | [place] [address] | | | | | | [phone] | | | | | | | | +--------+---------+ + + + as of this encounter Visit Diagnoses + + | Diagnosis | + + | 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
--- OUTSIDE RECORDS SUMMARY | 2017-05-26 20:47 | XMS | Encounter Summary ---
Demographics + + + | Address | [address] | | | [place] [address] | + + + | Home Phone | | + + + | Preferred Language | Unknown | + + + | Marital Status | | + + + | Confucianist Affiliation | Unknown | + + + | Race | Unknown | + + + | Ethnic Group | Unknown | + + + Author + + + | Author | [facility] [employer] | + + + | Organization | [facility] | + + + | Address | Unknown | + + + | Phone | Unavailable | + + + Support + + + + + | Name | Relationship | Address | Phone | + + + + + | Meka Scott | ECON | [address] | | | | | [place] | | | | | [address] | | + + + + + Care Team Providers + +------+ + | Care Japanese Tutor Name | Role | Phone | + +------+ + | Teressa Su | PCP | Unavailable | + +------+ + Encounter Details +--------+ + + + + | Date | Type | Department | Care Team | Description | +--------+ + + + + | 05/14/ | Telephone | [facility] | Vinicio Russell RN | | | 2017 | | Wound Care [address] | | | | | | [place] | | | | | | [address] | | | +--------+ + + + [...] 2017 | Visit | | [address] | | | | | | [address] | | | | | | [place] [address] | | | | | | [phone] | | | | | | | | | | | | Laureen Vogt MD | | | | | | [address] [facility] | | | | | | [place] [address] | | | | | | [phone] | | | | | | | | +--------+---------+ + + + as of this encounter Visit Diagnoses Not on filein this encounter"
--- OUTSIDE RECORDS SUMMARY | 2017-05-26 20:47 | XMS | Encounter Summary ---
Demographics + + + | Address | [address] | | | [place] [address] | + + + | Home Phone | | + + + | Preferred Language | Unknown | + + + | Marital Status | | + + + | Temple Affiliation | Unknown | + + + | Race | Unknown | + + + | Ethnic Group | Unknown | + + + Author + + + | Author | [facility] | + + + | Organization | [facility] | + + + | Address | Unknown | + + + | Phone | Unavailable | + + + Support + + + + + | Name | Relationship | Address | Phone | + + + + + | Meka Scott | ECON | [address] | | | | | [place] | | | | | [address] | | + + + + + Care Team Providers + +------+ + | Care Rehanger Name | Role | Phone | + +------+ + | Teressa Su | PCP | Unavailable | + +------+ + Encounter Details +--------+ + + + + | Date | Type | Department | Care Team | Description | +--------+ + + + + | 05/09/ | Lab | [facility] | Ida Garrido, | Skin ulcer of left | | 2018 | Requisition | [address] | Projects Manager | calf with fat layer | | | | [place] [address] | | exposed (HCC); | | | | [phone] | | Non-healing surgical | | | [...] 2017 | Visit | | [address] | | | | | | [address] | | | | | | [place] [address] | | | | | | [phone] | | | | | | | | | | | | Laureen Vogt MD | | | | | | [address] [facility] | | | | | | [place] [address] | | | | | | [phone] | | | | | | | | +--------+---------+ + + + as of this encounter Results Wound Culture (05/09/2017 6:47 PM) + + + + | Component | Value | Ref Range | + + + + | Specimen Description | OTHER | | + + + + | CULTURE | 1+ | | + + + + | CULTURE | NORMAL SKIN LOLY ISOLATED | | + + + + + + + | Specimen | Performing Laboratory | + + + | Wound - [facility]TH[facility]-w | [facility] [address] [place], [place] [address], | | source desc (F6) | [place] [address] | + + + in this encounter Visit Diagnoses + + | Diagnosis | + + | Skin ulcer of left calf with fat layer exposed (HCC) | + + | Non-healing surgical wound, subsequent encounter | + +"
--- OUTSIDE RECORDS SUMMARY | 2017-05-26 20:47 | XMS | Encounter Summary ---
Demographics + + + | Address | [address] | | | [place] [address] | + + + | Home Phone | | + + + | Preferred Language | Unknown | + + + | Marital Status | | + + + | Restorationism Affiliation | Unknown | + + + | Race | Unknown | + + + | Ethnic Group | Unknown | + + + Author + + + | Author | [employer] | + + + | Organization | [facility] | + + + | Address | Unknown | + + + | Phone | Unavailable | + + + Support + + + + + | Name | Relationship | Address | Phone | + + + + + | Meka Scott | ECON | [address] | | | | | [place] | | | | | [address] | | + + + + + Care Team Providers + +------+ + | Care Data Entry Representative Name | Role | Phone | + +------+ + | Teressa Su | PCP | Unavailable | + +------+ + Encounter Details +--------+ + + + + | Date | Type | Department | Care Team | Description | +--------+ + + + + | 05/09/ | Hospital | [facility] | Laureen Vogt, | Skin ulcer of left | | 2018 | Encounter | [facility] | [address] | calf with fat layer | | | | Ultrasound [address] | [place] [address] | exposed (HCC) | | | | [address] | [phone] | | | | | [place] [address] | | | | | | [phone] | | | +--------+ + + + [...] | 0 | 04/24/19 | | | (medical fee clerk) | instruction as | | | 18 [...] | | | 17 | | | [id number] units capsule | | | | | [...] 2017 | Visit | | [address] | | | | | | [address] | | | | | | [place] [address] | | | | | | [phone] | | | | | | | | | | | | Laureen Vogt MD | | | | | | [address] [facility] | | | | | | [place] [address] | | | | | | [phone] | | | | | | | | +--------+---------+ + + + as of this encounter Visit Diagnoses + + | Diagnosis | + + | Skin ulcer of left calf with fat layer exposed (HCC) | + +"
--- OUTSIDE RECORDS SUMMARY | 2017-05-26 20:47 | XMS | Encounter Summary ---
Demographics + + + | Address | [address] | | | [place] [address] | + + + | Home Phone | | + + + | Preferred Language | Unknown | + + + | Marital Status | | + + + | Oriental Orthodox Affiliation | Unknown | + + + | Race | Unknown | + + + | Ethnic Group | Unknown | + + + Author + + + | Author | [employer] | + + + | Organization | [facility] | + + + | Address | Unknown | + + + | Phone | Unavailable | + + + Support + + + + + | Name | Relationship | Address | Phone | + + + + + | Meka Hernandez | ECON | [address] | | | | | [place] | | | | | [address] | | + + + + + Care Team Providers + +------+ + | Care Typewriter Assembler Name | Role | Phone | + +------+ + | Teressa Su | PCP | Unavailable | + +------+ + Reason for Visit + + + | Reason | Comments | + + + | Skin Complaint | Leg abscess recently drained, from wound care clinic. Provider | | | concerned as his knee is TTP and there is pus drainage. | + + + Encounter Details +--------+ + + + + | Date | Type | Department | Care Team | Description | +--------+ + + + + | 05/23/ | Emergency | [facility] | Lamine Lainez, | Lower extremity | | 2018 | | [facility] | [place] [address] | ulceration, left, | | | | Emergency Department | [place] [address] | with unspecified | | | | [address] | [phone] | severity (HCC) | | | | [place] [address] | | (Primary Dx) | | | | [phone] | Jordy Markham MD | | | | | | Emergency | | | | | | Department [address] | | | [address] | | | | | | [place] [address] | | | | | | [phone] | | | | | | | [...] PM PDT | + + + + in this encounter Discharge Instructions The following attachments cannot be sent through Care Everywhere.Pressure Injury, Simple (E shaylalish)Wound Care (Gambian)in this encounter Medications at Time of Discharge [...] 0 | 04/24/19 | | | (medical practitioners) | instruction as | | | 18 [...] + + + +---------+ + + | ONETOUCH DELICA | | | | 03/19/19 | | | LANCETS 33G MISC | | | | 17 [...] | | | 17 | | | [id number] units capsule | | | | | | + + + +---------+ + + as of this encounter Plan of Treatment +--------+---------+ + + + | Date | Type | Specialty | Care Team | Description | +--------+---------+ + + + | 06/13/ | Office | Wound Care | Teressa Su | | | 2017 | Visit | | [address] | | | | | | [address] | | | | | | [place] [address] | | | | | | [phone] | | | | | | | | | | | | Laureen Vogt MD | | | | | | [address] [facility] | | | | | | [place] [address] | | | | | | [phone] | | | | | | | | +--------+---------+ + + + + +--------+ + + | Name | Priori | Associated Diagnoses | Date/Time | | | ty | | | + +--------+ + + | Blood Culture Set 1 | STAT | | 05/23/2017 5:34 PM | | | | | PDT | + +--------+ + + | Blood Culture Set 2 | STAT | | 05/23/2017 5:32 PM | | | | | PDT | + +--------+ + + as of this encounter Results Lower extremity venous left (05/23/2017 7:07 PM) + + + | Specimen | Performing Laboratory | + + + | | [address] [address] | + + + + + | [...] Note | + + | Raoul Reed Results In - 05/23/2017 7:20 PM FELIPE [...] | | | | | + + Comprehensive metabolic panel (05/23/2017 5:33 [...] | | | | 1.210.Testing performed at [facility];[address] [place] [address] | | | | [facility];[place] [address] | | | | | | + + + + + + + | Specimen | Performing Laboratory | + + + | Blood | [facility] [address] [place] [address] | + + + CBC with differential (05/23/2017 5:33 [...] BASOPHILS ABS | 0.10Comment: Testing performed at [facility];888 | 0.00 - 0.10 K/uL | | | Tony Jacob;[place] [address] | | + + + + + + + | Specimen | Performing Laboratory | + + + | Blood | [facility] [address] [facility] [address] | + + + in this encounter Visit Diagnoses + + | Diagnosis | + + | Lower extremity ulceration, left, with unspecified severity (HCC) - Primary | + + Admitting Diagnoses + + | Diagnosis | + + | Lower extremity ulceration, left, with unspecified severity (HCC) | + + Administered Medications + +--------+---------+------+------+------+ | Medication Order | MAR | Action | Dose | Rate | Site | | | Action | Date | | | | + +--------+---------+------+------+------+ + +---+ | sodium chloride 0.9 % flush 10 | | | mL 10 mL, Intravenous, Every 8 | | | Hours, First dose on [facility] 05/23/17 | | | at 1717 | | + +---+ | | | + +---+ in this encounter"
--- OUTSIDE RECORDS SUMMARY | 2017-05-26 20:47 | XMS | Encounter Summary ---
Demographics + + + | Address | [address] | | | [place] [address] | + + + | Home Phone | | + + + | Preferred Language | Unknown | + + + | Marital Status | | + + + | Quaker Affiliation | Unknown | + + + | Race | Unknown | + + + | Ethnic Group | Unknown | + + + Author + + + | Author | [employer] | + + + | Organization | [facility] | + + + | Address | Unknown | + + + | Phone | Unavailable | + + + Support + + + + + | Name | Relationship | Address | Phone | + + + + + | Meka Scott | ECON | [address] | | | | | [place] | | | | | [address] | | + + + + + Care Team Providers + +------+ + | Care Automotive Welder Name | Role | Phone | + +------+ + | Teressa Su | PCP | Unavailable | + +------+ + Encounter Details +--------+ + + + + | Date | Type | Department | Care Team | Description | +--------+ + + + + | 05/02/ | Telephone | [facility] | Darrell Arce, | | | 2018 | | [facility] | MD Max WEAVER | | | | | MEDICINE [place] | [place], [place] | | | | | [address] | [id number] | | | | | [address] [place] | [phone] | | | | | [address] | | | | | | [phone] | | | +--------+ + + + [...] 2017 | Visit | | JORGE Richardson [address] | | | | | | [address] | | | | | | [place] [address] | | | | | | [phone] | | | | | | | | | | | | Laureen Vogt MD | | | | | | [address] [facility] | | | | | | [place] [address] | | | | | | [phone] | | | | | | | | +--------+---------+ + + + as of this encounter Visit Diagnoses Not on filein this encounter"
--- OUTSIDE RECORDS SUMMARY | 2017-05-26 20:47 | XMS | Encounter Summary ---
Demographics + + + | Address | [address] | | | [place] [address] | + + + | Home Phone | | + + + | Preferred Language | Unknown | + + + | Marital Status | | + + + | Mormon Affiliation | Unknown | + + + | Race | Unknown | + + + | Ethnic Group | Unknown | + + + Author + + + | Author | [employer] | + + + | Organization | [facility] | + + + | Address | Unknown | + + + | Phone | Unavailable | + + + Support + + + + + | Name | Relationship | Address | Phone | + + + + + | Meka Scott | ECON | [address] | | | | | [place] | | | | | [address] | | + + + + + Care Team Providers + +------+ + | Care Certified Hearing Instrument Dispenser Name | Role | Phone | + [...] Wound Care | Diagnoses | Sharlene, | [facility]ound | | | | | Unspecified | Teressa Richardson, | [facility] | | | | | open wound, | [place] [address] | [address] | | | | | left lower | [address] | [address] | | | | | leg, initial | [place], | [place], [place] | | | | | encounter | [place] [address] | [address] Phone: | | | | | | Phone: | [phone] | | | | | | [phone] | Fax: | | | | | | Fax: | [phone] | | | | | | [phone] | | + +--------+ + + + + Encounter Details +--------+---------+ + + + | Date | Type | Department | Care Team | Description | +--------+---------+ + + + | 03/22/ | Office | [facility] | Teressa Su | Skin ulcer of left | | 2018 | Visit | Wound Care [address] | [place], [place] [address] | calf, limited to | | | | Blvd[address] [place], [place] | [address] | breakdown of skin | | | | [address] | [place] [address] | ([facility]) (Primary Dx); | | | | | [phone] | Skin ulcer of left | | | | | | calf with fat layer | | | | | Laureen Vogt MD | exposed ([facility]); | | | | | [address] | Non-healing surgical | | | | | [place] [address] | wound, subsequent | | | | | [phone] | encounter; Venous | | | | [...] + + + | Blood Pressure | 140/81 | 05/09/2017 9:33 AM PDT | + + + + | Pulse | 56 | 05/09/2017 9:33 AM PDT | + + + + | Temperature | 36.6 C (97.8 F) | 05/09/2017 9:33 AM PDT | + + + + | Respiratory Rate | 20 | 05/09/2017 9:33 AM PDT | + + + + [...] this encounter Instructions Patient Instructions - Marianela Au, CHRISTIANO - 05/09/2017 9:30 AM PDTHOLD COMPRESSION UNT IL FURTHER NOTICE. PLEASE DISCUSS THE NEW LESION WITH DR. MUSTAFA WHEN YOU SEE HIM TODAY. YOUR TO DO LIST: (studies, labs, referrals, etc) 1. A culture has been taken of your wound today. The results should be available in 3 to 5 days. We will notify you if there is a need for A CHANGE IN antibiotic treatment. PLEASE MANAGER HEALTH THE CLINDAMYCIN AND TAKE DIRECTED WITH PROBIOTICS. TREATMENT BEFORE DOING WOUND CARE: To reduce [...] used. 3. Moisten a piece of Collagen with Silver and place it just inside the wound. [...] & tape OR only tape, as appropriate. WOUND CARE SUPPLIES: Please bring the following dressing supplies to each visit: [employer], SCISSORS On your initial visit you are being given a 3 day supply of dressings to treat your wound. We are unable to provide you with dressings beyond the 3 day period. Supply Resources: The chosen dressing supply company. The [employer]. Local [employer] retail stores. Your chosen wound care dressing supply company is [employer]. Should you have any questions or concerns [...] do ctor. in this encounter Progress Notes Laureen Vogt MD - 05/09/2017 9:30 AM PDT Subjective: Jimmy Scott is a pleasant 57 y.o. male who presents for follow up for wound care for c hronic ulceration of left calf. he reports that the ulcer has been doing fairly well. he r eports that he has been compliant with his treatment regimen. No significant changes in PM Hx since last visit. Has an abscess on the left pretibial area that started to drain this morning. Had a CT done but we cannot see the report. I asked staff to call [facility] and we requested a copy. Review of Systems Constitutional: No fatigue, sweats or weight loss HEENT: No visual changes, loss of vision, blurriness or sinus complaints Throat: No sore throat or stridor Lungs: No cough productive of blood GI: No blood in stools, no vomiting blood : No hematuria or urinary incontinence Skeletal: No swelling of joints, no atrophy of muscles, no loss of strength Skin: Ulcer left calf. Abscess on the left pretibial area Neuro: No new loss of sensation in arms/legs, no new weakness, no seizures All systems reviewed and otherwise negative Pertinent items are noted in HPI. Objective: See above note for wound description and measurements. General appearance: alert, appears stated age and cooperative Skin: Ulcer left calf small with less slough and more granulation tissue under. Has a dept h of 2 mm to it and is located on a scar tissue. It is smaller and less deep again. It is mo re dry and very small. No erythema, no odor, no discharge, no warmth. The ulcer is due to hensley rgery and it is limited to skin breakdown now - no structures are seen. Has hyperpigmentatio n left leg. Abscess on upper pretibial area with a pinpoint oozing point. The abscess is fluctuant ooz ing discharge and ready to burst. No erythema, no warmth arpund Pulses are present Left knee motility is [...] by nursing. Pt to f/u as scheduled. A placed local Lidocaine and I used a number 11 scalpel - I did an incision in the middle a nd a large amount of purulent materila was drained - about 5-10 cc. A wound culture was done on the new wound created after the incision. The wound has some depth to it but I cannot to uch any bone or foreign body. 1.Ulcer left calf with limited to skin breakdown Surgical wound non healing - will continue just Collagen AG and wash with dakins. 2.Venous insufficiency - Will hold the compressions for now due to the abscess Keep legs elevated. Will do the vascular studies. Please schedule the venous US. The arteri al studies are scheduled. 3.Abscess left leg. Wound left leg - after the I&D a wound culture was done and will apply Aquacel AG and wash with dakins. If more redness, if fever, chills or any acute symptoms ple ase go to ED [facility]! Clindamycin 300 mg po Qid for 10 days with probiotics was ordered. Patien t will see Dr. Mustafa today and I advised the patient to show the area to him to assess any d eeper orthopedics problems that we cannot address here. Patient and understood. I expla ined to the patient that I just did the I&D because the abscess was ready to burst open. If Dr. Mustafa will wants to change the treatment in the area I told the patient that I will agre e with the change. Visit diagnoses: Ulcer left calf limited to skin breakdown Surgical wound non healing Venous insufficiency Abscess left leg Wound left leg LAUREEN VOGT MD 05/09/2017 I am evaluating this patient for their wound care needs. They will continue to be seen and taken care of by their primary physician/Specialist and have their medications prescribed as well. See below for procedure(s) if applicable. LAUREEN VOGT MD 05/09/2017 Vinicio Russell, RN - 05/09/2017 9:30 AM Tera Scott is a 57 y.o. [facility]. He presents [...] in place on this visit: Regular Shoe: bilateralin this encounter Plan of Treatment +--------+---------+ + + + | Date | Type | Specialty | Care Team | Description | +--------+---------+ + + + | 06/13/ | Office | Wound Care | Teressa Su | | | 2018 | Visit | | [address] | | | | | | [address] | | | | | | [place] [address] | | | | | | [phone] | | | | | | | | | | | | Laureen Vogt MD | | | | | | [address] [facility] | | | | | | [place] [address] | | | | | | [phone] | | | | | | | [...] + + | Wound - OTHR-w | [facility] [address] [place], | | source desc (F6) | [place] [address] | + + + in this encounter Visit Diagnoses + + | Diagnosis | + + | Skin ulcer of left calf, limited to breakdown of skin (HCC) - Primary | + + | Skin ulcer of left calf with fat layer exposed (HCC) | + + | Non-healing surgical wound, subsequent encounter | + + | Venous insufficiency | + + | Unspecified venous (peripheral) insufficiency | + + | Abscess of left leg | + + | Cellulitis and abscess of leg, except foot | + + | Open wound of left lower leg, initial encounter | + + Admitting Diagnoses + [...] disease, esophagitis presence not specified | + +"
--- OUTSIDE RECORDS SUMMARY | 2017-05-26 20:48 | XMS | Encounter Summary ---
Demographics + + + | Address | [address] | | | [place] [address] | + + + | Home Phone | | + + + | Preferred Language | Unknown | + + + | Marital Status | | + + + | Oriental Orthodox Affiliation | Unknown | + + + | Race | Unknown | + + + | Ethnic Group | Unknown | + + + Author + + + | Author | [facility] | + + + | Organization | [facility] | + + + | Address | Unknown | + + + | Phone | Unavailable | + + + Support + + + + + | Name | Relationship | Address | Phone | + + + + + | Meka Scott | ECON | [address] | | | | | [place] | | | | | [address] | | + + + + + Care Team Providers + +------+ + | Care Tram Operator Name | Role | Phone | + +------+ + | Teressa Su | PCP | Unavailable | + +------+ + Reason for Referral MRI/CAT Scan (Routine) + +--------+ + + + + | Status | Reason | Specialty | Diagnoses / | Referred By | Referred To | | | | | Procedures | Contact | Contact | + +--------+ + + + + | Authorized | | | Diagnoses | Black, | [facility] | | | | | Closed | Darrell, | OUTPATIENT | | | | | displaced | MD [address] | | | | | bicondylar | [address] | BLVD | | | | | fracture of | [place] | [place] | | | | | left tibia | [id number] | [address] | | | | | with | Phone: | Phone: | | | | | nonunion, | [phone] | [phone] | | | | | subsequent | Fax: | | | | | | encounter | [phone] | | | | | | Procedures | | | | | | | CT knee left | | | | | | | without | | | | | | | contrast | | | + +--------+ + + + + Reason for Visit + + + | Reason | Comments | + + + | Fracture | L tibial plateau | + + + Surgical (Routine) + [...] | Surgery | Fracture | Referred | [facility] | | | | | tibia/fibula | Phone: | [address] | | | | | , left, | [phone] | [place], [place] | | | | | closed, | Fax: | [phone] | | | | | initial | [phone] | Phone: | | | | | encounter | | [phone] | | | | | fup lt | | Fax: | | | | | tib/fib dos | | [phone] | | | | | 07/04 10 [...] Description | +--------+---------+ + + + | 04/23/ | Office | [facility] | Darrell Arce, | Closed displaced | | 2018 | Visit | [facility] | [address] | bicondylar fracture | | | | [facility] | [place], [place] | of left tibia with | | | | [address] | [phone] | nonunion, subsequent | | | | [place], [place] | [phone] | encounter (Primary | | | | [address] | | Dx) | | | | [phone] | | | +--------+---------+ + + + Social History [...] + + + + | Pulse | 69 | 04/23/2017 12:51 PM PST | + + + + | Temperature | - | - | + + + + | Respiratory Rate | - | - | + + + + | Oxygen Saturation | 98% | 04/23/2017 12:51 PM PST | + + + + | Inhaled Oxygen | - | - | | Concentration | | | + + + + | Weight | 94.3 kg (208 lb) | 04/23/2017 12:51 PM PST | + + + + | Height | 175.3 cm (5' 9") | 04/23/2017 12:51 PM PST | + + + + | Body Mass Index | 30.72 | 04/23/2017 12:51 PM PST | + + + + in this encounter Instructions Patient Instructions - Darrell Arce MD - 04/23/2017 12:40 PM PSTHold on leg presses a nd any deep knee bends Enjoy [place] Please call with any questions or concerns, or if your plan of care is not clear to you. in this encounter Progress Notes Darrell Arce MD - 04/23/2017 12:40 PM PSTFormatting of this note may be different fro m the original. 04/23/2017 Vital Signs Vitals: 04/23/17 1251 Pulse: 69 SpO2: 98% Interval History Jimmy presents to the office today for follow up on his L tibial plateau fracture. He state s his pain stays about a 2, thats tolerable. He does have some numbness and tingling but les s than it used to be. Not fully recovered. He is still doing PT, and is going once a week bu t doing his own at home 4x a week. He believes to being seeing a difference he is getting so me strength but not much mobility. He states he has a wound that keeps resurfaces that has k ept him out of aqua therapy. Jimmy is now 13mos s/p ORIF L bicondylar tibial plateau fracture. He notes that his pain ru ns typically around 2-3 with normal activities. He is still employing a cane and modifying h is wt bearing to some degree because of the discomfort in his knee joint. He has been using an AFO with some improvement in his ankle motion. He also feels that the nerve is "waking up " more in his leg with some sensation returning. He notes the ability to actively dorsiflex close to neutral. He reports that he has a medial wound that had re-opened and required him to be seen at the wound care clinic. They have been packing it with good results. He denies fevers/chills or other systemic symptoms ROS Review of Systems All other systems reviewed and are negative. Current Medications Current Outpatient Prescriptions: amLODIPine (NORVASC) 10 MG tablet, Take 10 mg by mouth daily., Disp: , Rfl: ANKLE FOOT ORTHOTIC (curator medical museum), Fit and instruct patient in use of device., Disp : 1 each, Rfl: 0 aspirin 81 MG tablet, Take 81 mg by mouth daily., Disp: , Rfl: atenolol (TENORMIN) 50 MG tablet, , Disp: , Rfl: BONE STIMULATOR (curator medical museum), Dispense and provide instruction as needed., Disp: 1 each, Rfl: 0 ciprofloxacin (CIPRO) 500 MG tablet, , Disp: , Rfl: diazePAM (VALIUM) 5 MG tablet, Take 5 [...] Disp: , Rfl: ONETOUCH DELICA LANCETS 33G [facility], , Disp: , Rfl: POST-OP SHOE (curator medical museum), Fit and instruct patient in use of device., Disp: 1 eac h, Rfl: 0 sildenafil (REVATIO) 20 MG tablet, Take 20 mg by mouth as needed., Disp: , Rfl: vitamin D2, ergocalciferol, 75144 units capsule, , Disp: , Rfl: Current Facility-Administered Medications: lidocaine (XYLOCAINE) 4 % external solution, , Topical, PRN, Laureen Vogt MD Allergies No Known Allergies Physical Exam LLE- medial wound without erythema or discharge, no fluctuance. Active DF to -5 degrees, PF to 40 Radiology No results found. XR L knee- 04/09/17 View Complete Results Impression 1. Debris with irregularity of the skin surface along the medial infrapatellar knee, prob ably in the region of the known ulcer. 2. Extensive medial and lateral plate and screw fixation of the proximal to mid tibia, wi th multiple bone fragments in the medial left tibial plateau, most of which do not appear un ited. 3. Medial downsloping of the medial tibial plateau, with varus angulation again noted. 4. Old healed proximal fibular metaphyseal fracture. 5. Small joint effusion. Assessment and Plan ICD-10-CM 1. 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 I am please with his neurologic improvement. He has also noted improve d swelling with the compression sleeve he wears. We need his wound to heal completely. I do have concerns about the quality/quantity of bone healing. In order to evaluate this I have o rdered a CT of his knee. We also ordered a bone stimulator for him. Because he is having mago e pain occasionally with leg presses, and the appearance of one of the minifrag plates henrietta chaidez pulled off of the tubercle piece I have requested he stop strenuous leg extension exercise s while we evaluate his healing. He and his are headed to [place], which I hope is quite therapeutic for him. He will f/u once he returns and has obtained his CT scan. Orders Placed This Encounter Procedures X-ray knee [address] knee left without contrast Requested Prescriptions Signed Prescriptions Disp Refills BONE STIMULATOR ([employer]ator medical museum) 1 each 0 Sig: Dispense and provide instruction as needed. Return in about 3 weeks (around 05/14/2017). Patient Instructions Hold on leg presses and any deep knee bends Enjoy [place] Please call with any questions or concerns, or if your plan of care is not clear to you. Xrays next visit: n/a Darrell Arce MDin this encounter Plan of Treatment +--------+---------+ + + + | Date | Type | Specialty | Care Team | Description | +--------+---------+ + + + | 06/13/ | Office | Wound Care | Teressa Su | | | 2018 | Visit | | JORGE Richardson [address] | | | | | | [address] | | | | | | [place] [address] | | | | | | [phone] | | | | | | | | | | | | Laureen Vogt MD | | | | | | [address] [facility] | | | | | | [place] [address] | | | | | | [phone] | | | | | | | | +--------+---------+ + + + + +--------+ + + | Name | Priori | Associated Diagnoses | Order Schedule | | | ty | | | + +--------+ + + | X-ray knee 3 views left | Routin | Closed displaced | Expected: | | | e | bicondylar fracture | 04/23/2017, Expires: | | | | of left tibia with | 10/23/2017 | | | | nonunion, subsequent | | | | | encounter | | + +--------+ + + | CT knee left without contrast | Routin | Closed displaced | Expected: | | | e | bicondylar fracture | 04/30/2017, Expires: | | | | of left tibia with | 04/23/2018 | | | | nonunion, subsequent | | | | | encounter | | + +--------+ + + as of this encounter Visit Diagnoses + + | Diagnosis | + + | 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
--- OUTSIDE RECORDS SUMMARY | 2017-05-26 20:48 | XMS | Encounter Summary ---
Demographics + + + | Address | [address] | | | [place] [address] | + + + | Home Phone | | + + + | Preferred Language | Unknown | + + + | Marital Status | | + + + | Holiness Affiliation | Unknown | + + + | Race | Unknown | + + + | Ethnic Group | Unknown | + + + Author + + + | Author | [facility] | + + + | Organization | [facility] | + + + | Address | Unknown | + + + | Phone | Unavailable | + + + Support + + + + + | Name | Relationship | Address | Phone | + + + + + | Meka Scott | ECON | [address] | | | | | [place] | | | | | [address] | | + + + + + Care Team Providers + +------+ + | Care Pipe Threading Machine Operator Name | Role | Phone | [...] Wound Care | Diagnoses | Sharlene, | [facility] Wound | | | | | Unspecified | Teressa Richardson, | [facility] | | | | | open wound, | [place] [address] | [address] | | | | | left lower | [address] | [address] | | | | | leg, initial | [place], | [place], [place] | | | | | encounter | [place] [address] | [address] Phone: | | | | | | Phone: | [phone] | | | | | | [phone] | Fax: | | | | | | Fax: | [phone] | | | | | | [phone] | | + +--------+ + + + + Encounter Details +--------+---------+ + + + | Date | Type | Department | Care Team | Description | +--------+---------+ + + + | 03/06/ | Office | [facility] | Teressa Su | Skin ulcer of left | | 2018 | Visit | Wound Care [address] | [place], [place] [address] | calf with fat layer | | | | [address]vd. [place], [place] | [address] | exposed (HCC) | | | | [address] | [place] [address] | (Primary Dx); | | | | | [phone] | Non-healing surgical | | | | | | wound, subsequent | | | | | Laureen Vogt MD | encounter; Venous | | | | | [address] | insufficiency | | | | | [place] [address] | | | | | | [phone] | | | | | | | [...] + + + | Blood Pressure | 156/105 | 04/23/2017 3:04 PM PST | + + + + | Pulse | 81 | 04/23/2017 3:04 PM PST | + + + + | Temperature | 37.1 C (98.8 F) | 04/23/2017 3:04 PM PST | + + + + | Respiratory [...] in this encounter Instructions Patient Instructions - Ronit Tapia RN - 04/23/2017 3:00 PM PST YOUR TO DO LIST: (studies, labs, referrals, etc) Call the [facility] Scheduling Department to make an appointment for your lower extremity ultra sound studies at [phone]. Please call and reschedule to appointment you cancelled towillem y. This is for the venous ultrasound. Dr. Vogt wants you to have this study also. TREATMENT BEFORE DOING WOUND CARE: To reduce your risk of infection please do the following. 1. Wash your hands. 2. Put on gloves. 3. Remove dressing. 4. Remove gloves. 5. Wash your hands. 6. Put on new gloves. Every Other Day / every 3rd day to the left leg wound: 1. Cleanse ulcer with DI- [...] Put Wound Gel over the collagen 4. Place a large enough piece of the AQUACEL into/over the ulcer that extends approximat arslan 1 inch beyond ulcer edges. IF NEEDING TO USE THE AQUACEL SHEET A ROPE: Cut parallel between the stitches almost to the end, then back down the next row without cu tting loose from sheet. Do this, back & forth, as many times as necessary to form the length of tail needed. Using metal probe, that has been cleansed with a disinfectant wipe, gently ease the Aquacel tail into the depth of the ulcer. Lay remaining Aquacel over the ulcer. 5. Cover with dry gauze. 6. Secure with roll gauze, & tape OR only tape, as appropriate. 7. Put on your 2 Layer tubi antisqueak chalker NOTE: Compression Stockings/Tubigrips need to be put on as soon as you wake up. They shou ld be taken off at bedtime. They may be machine washed & dried. The doctor is requesting y ou wear a 2 Layer tubigrip that is equal to 16 mmHg compression. In order for tubig rip compression to be effective the proper length is from the base of the toes to 2 fingers below the bend of the knee. WOUND CARE SUPPLIES: Please bring the following dressing supplies to each visit: [employer] SOL[employer], SCISSORS On your initial visit you are being given a 3 day supply of dressings to treat your wound. We are unable to provide you with dressings beyond the 3 day period. Supply Resources: The chosen dressing supply company. [employer] Local [employer] retail stores. Your chosen wound care dressing supply company is [employer]. Should you have any questions or concerns [...] do ctor. in this encounter Progress Notes Josefa Diaz RN - 04/23/2017 3:00 PM Richard Scott is a 57 y.o. male who presents today for Wound Care visit. He presents accompanied by spouse. He arrived: Ambulatory. Transfer Assistance: Manual Patient identification verified: yes Secondary [...] in place on this visit: Regular Shoe: bilateral Laureen Vogt MD - 04/23/2017 3:00 PM PSTFormatting of this note may be different from [...] changes in PM Hx since last visit. Wound culture showed no growth. The X ray showed: 1. Debris with irregularity of the skin [...] fibular metaphyseal fracture. 5. Small joint effusion. Saw Dr. Arce and he is scheduled for a CT. Review of Systems Constitutional: No fatigue, sweats [...] slough and more granulation tissue under. Has some d epth to it and is located on a scar tissue. It is smaller and less deep. It is more dry. No erythema, no odor, no discharge, no warmth. The ulcer is due to surgery and it is with fat l telma exposed due to the depth - no structures are seen. Has hyperpigmentation left leg. Pulses are present Assessment / Plan: PROCEDURE: Excisional debridement medically [...] f/u as scheduled. 1.Ulcer left calf with fat layer exposed. Surgical wound non healing - will apply Collagen AG and plain Aquacel and wash with dakins. 2.Venous insufficiency - Tolerates [address] 2 layer Tubi [employer] - if any pa in in leg,toes, purple or cold toes please take the second layer of theTubi teradata solution architect off! Keep legs elevated. Will do the vascular studies. Please schedule the venous US. The arteri al studies are scheduled. Visit diagnoses: Ulcer left calf with fat layer exposed Surgical wound non healing Venous insufficiency LAUREEN VOGT MD 04/23/2017 I am evaluating this patient for their wound care needs. They will continue to be seen and taken care of by their primary physician/Specialist and have their medications prescribed as well. See below for procedure(s) if applicable. LAUREEN VOGT MD 04/23/2017 in this encounter Plan of Treatment +--------+---------+ + + + | Date | Type | Specialty | Care Team | Description | +--------+---------+ + + + | 06/13/ | Office | Wound Care | Teressa Su | | | 2017 | Visit | | JORGE Richardson [address] | | | | | | [address] | | | | | | [place] [address] | | | | | | [phone] | | | | | | | | | | | | Laureen Vogt MD | | | | | | [address] [facility] | | | | | | [place] [address] | | | | | | [phone] | | | | | | | | +--------+---------+ + + + as of this encounter Visit Diagnoses + + | Diagnosis | + + | Skin ulcer of left calf with fat layer exposed (HCC) - Primary | + + | Non-healing surgical wound, subsequent encounter | + + | Venous insufficiency | + + | Unspecified venous (peripheral) insufficiency | + + Admitting Diagnoses + + [...] lidocaine (XYLOCAINE) 4 % | Given | 04/23/2017 | | | | | external solution Starting Tue | | 15:14 | | | | | 04/23/17 at 1508, For 1 dose, Joe, | | PST | | | | | Josefa : bogdan override | | | | | | + +--------+ +------+------+------+ +---+---+ | | | +---+---+ in this encounter"
--- OUTSIDE RECORDS SUMMARY | 2017-05-26 20:48 | XMS | Encounter Summary ---
Demographics + + + | Address | [address] | | | [place] [address] | + + + | Home Phone | | + + + | Preferred Language | Unknown | + + + | Marital Status | | + + + | Amish Affiliation | Unknown | + + + | Race | Unknown | + + + | Ethnic Group | Unknown | + + + Author + + + | Author | [facility] | + + + | Organization | [facility] | + + + | Address | Unknown | + + + | Phone | Unavailable | + + + Support + + + + + | Name | Relationship | Address | Phone | + + + + + | Meka Scott | ECON | [address] | | | | | [place] | | | | | [address] | | + + + + + Care Team Providers + +------+ + | Care Hydrostatic Tester Name | Role | Phone | + +------+ + | Teressa Su | PCP | Unavailable | + +------+ + Encounter Details +--------+ + + + + | Date | Type | Department | Care Team | Description | +--------+ + + + + | 04/09/ | Lab | [facility] | Betty Shields | Skin ulcer of left | | 2018 | Requisition | [address] [employer] Billing Specialist | calf with fat layer | | | | [place] [address] | | exposed (HCC) | | | | [phone] | | | +--------+ + + + [...] 2017 | Visit | | JORGE Richardson [address] | | | | | | [address] | | | | | | [place] [address] | | | | | | [phone] | | | | | | | | | | | | Laureen Vogt MD | | | | | | [address] [facility] | | | | | | [place] [address] | | | | | | [phone] | | | | | | | | +--------+---------+ + + + as of this encounter Results Wound Culture (04/09/2017 11:00 AM) + + + + | Component | Value | Ref Range | + + + + | Specimen Description | OTHER | | + + + + | CULTURE | NO GROWTH 2 DAYS | | + + + + + + + | Specimen | Performing Laboratory | + + + | Wound - [id number] | [facility] [address] [place], | | source desc (F6) | [place] [address] | + + + in this encounter Visit Diagnoses + + | Diagnosis | + + | Skin ulcer of left calf with fat layer exposed (HCC) | + +"
--- OUTSIDE RECORDS SUMMARY | 2017-05-26 20:48 | XMS | Encounter Summary ---
Demographics + + + | Address | [address] | | | [place] [address] | + + + | Home Phone | | + + + | Preferred Language | Unknown | + + + | Marital Status | | + + + | Baptism Affiliation | Unknown | + + + | Race | Unknown | + + + | Ethnic Group | Unknown | + + + Author + + + | Author | [facility] | + + + | Organization | [facility] | + + + | Address | Unknown | + + + | Phone | Unavailable | + + + Support + + + + + | Name | Relationship | Address | Phone | + + + + + | Meka Scott | ECON | [address] | | | | | [place] | | | | | [address] | | + + + + + Care Team Providers + +------+ + | Care Ironer Machine Name | Role | Phone | + +------+ + | Teressa Su | PCP | Unavailable | + +------+ + Reason for Visit + + + | Reason | Comments | + + + | Wound Check | | + + + | Dressing Change | | + + + Consult and Treat (Routine) + +--------+ + + + + | Status | Reason | Specialty | Diagnoses / | Referred By | Referred To | | | | | Procedures | Contact | Contact | + +--------+ + + + + | Authorized | | Wound Care | Diagnoses | Sharlene, | [facility] Wound | | | | | Unspecified | Teressa Richardson, | [facility] | | | | | open wound, | [place] [address] | [address] | | | | left lower | [address] | [address] | | | | | leg, initial | [place], | [place], [place] | | | | | encounter | [place] [address] | [address] Phone: | | | | | | Phone: | [phone] | | | | | | [phone] | Fax: | | | | | | Fax: | [phone] | | | | | | [phone] | | + +--------+ + + + + Encounter Details +--------+---------+ + + + | Date | Type | Department | Care Team | Description | +--------+---------+ + + + | 04/09/ | Office | [facility] | Teressa Su | Skin ulcer of left | | 2018 | Visit | Wound Care [address] [place] [address] | calf with fat layer | | | | Blvd. [place], [place] | [address] | exposed (HCC) | | | | [address] | [place] [address] | (Primary Dx); | | | | | [phone] | Essential | | | | | | hypertension; | | | | | Laureen Vogt MD | Gastroesophageal | | | | | [address] | reflux disease, | | | | | [place] [address] | esophagitis presence | | | | | [phone] | not specified; | | | | | | Non-healing surgical | | | | | | wound, initial | | | | | | encounter; Venous | | | | | | insufficiency | +--------+---------+ + + + Social History [...] + + + | Blood Pressure | 143/95 | 04/09/2017 9:47 AM PST | + + + + | Pulse | 58 | 04/09/2017 9:47 AM PST | + + + + | Temperature | 36.6 C (97.8 F) | 04/09/2017 9:47 AM PST | + + + + | [...] Patient Instructions - Ronit Tapia RN - 04/09/2017 9:30 AM PST YOUR TO DO LIST: (studies, labs, referrals, etc) 1). Please go to the [address] [place] [address] as soon as possible to have an X-Ray of your left lower l eg_ done. You do not need to schedule an appointment. DIRECTIONS: Exit the [employer] parking lot on the West end turning right onto [address]. Go 2 blocks. Before you get to the stop light, of [address], look left. [facility] is on left at back of parking lot. 2.) DAKINS also known as DI-DAK-SUSANNAH (0.0125%) is an over the counter dilute bleach solutio n that can safely clean your wound without harming healthy skin. This item is NOT covered by insurance and does NOT require a prescription. You may purchase this product at the following locations in [place]: [facility], [facility], or online through [employer]. There are several concentrations available,please be sure to verify the strength of 0.0125%. This is the brown bottle with yellow writing. [facility] [address] 3.) A culture has been taken of your wound today. The results should be available in 3 t o 5 days. We will notify you if there is a need for antibiotic treatment. 4.) Call the [facility] Scheduling Department to make an appointment for your lower extremity u ltrasound studies at [phone]. TREATMENT BEFORE DOING WOUND CARE: To reduce [...] mineral oil on a gauze pad. 2. Then reapply protective barrier (zinc oxide-desitin like) around ulcer. (You need to purchase the zinc oxide cream also known as Desitin ). Use sting free barrier wipe or spr ay to protect skin where tape is used. 3. Put Wound Gel (SKINTEGRITY) on base of ulcer. 4. Place a large enough piece of the AQUACEL SILVER into/over the ulcer that extends jean claude roximately 1 inch beyond ulcer edges. IF NEEDING [...] tape, as appropriate. 7. Put on your tubi machine burrer NOTE: Compression Stockings/Tubigrips need to be put on as soon as you wake up. They shou ld be taken off at bedtime. They may be machine washed & dried. The doctor is requesting y ou wear a 1 Layer tubigrip that is equal to 8 - 10 mmHg compression. In order for t ubigrip compression to be effective the proper length is from the base of the toes to 2 fing ers below the bend of the knee. WOUND CARE SUPPLIES: Please bring the following dressing supplies to each visit: DAKIN'S SOLUTION, SCISSORS On your initial visit you are being given a 3 day supply of dressings to treat your wound. We are unable to provide you with dressings beyond the 3 day period. Supply Resources: The chosen dressing supply company. [employer]. [employer]. Your chosen wound care dressing supply company is [employer]. Should you have any questions or concerns [...] encounter Progress Notes Laureen Vogt MD - 04/09/2017 9:30 AM PSTFormatting of this note may be different from the original. Subjective: Jimmy Scott is a 57 y.o. male who presents for initial visit for wound care. he repor ts that the wound has been present for 11 months. Etiology of the wound includes: Surgical - Open Surgical Wound. Had a external fixator application and after that removal after a fr acture and the surgery was done by Dr. Arce in June Previous therapies to date include: telf a and POOJA wrap. Dr. Arce agreed that patient is seen by us. Other additional history includes: HTN, GERD After introducing myself to the patient, I have performed a careful history and physical ex amination. I have formulated a differential diagnosis that needs to be addressed during thi s wound care visit, briefly discussed this differential with Jimmy and then discussed with no hernandez the plan of care. I have also addressed the risks and benefits of all diagnostic and tr eatment modalities planned for this visit. I have reviewed the nursing notes as well as pertinent prior records and also Jimmy Scott' s PMHx, PSHx, SOC Hx and FAMHx. I have reviewed MEDS and ALLERGIES as well. Review of Systems Constitutional: No fatigue, sweats or weight loss Eyes: No visual changes, loss of vision, or bluriness Nose: No excessive nosebleeds Throat: No sore throat or stridor Lungs: No cough productive of blood GI: No blood in stools, no vomiting blood : No hematuria or urinary incontinence Skeletal: No swelling of joints, no atrophy of muscles, no loss of strength Skin: Ulcer left calf. Neuro: No loss of sensation in arms/legs, no new weakness, no seizures All systems reviewed and otherwise negative Pertinent items are noted in HPI. Objective: BP (!) 143/95 (BP Location: Left upper arm, Patient Position: Sitting) | Pulse 58 | Temp 97.8 F (36.6 C) (Temporal) General Appearance: Alert, cooperative, no distress, appears stated age Head: Normocephalic, without obvious abnormality, atraumatic Eyes: PERRL, conjunctiva/corneas clear, EOM's intact Ears: deferred Nose: Normal appearing Throat: deferred Neck: Supple, symmetrical, trachea midline, no adenopathy Back: deferred Lungs: Clear to auscultation bilaterally, respirations unlabored Chest wall: No tenderness or deformity Heart: Regular rate and rhythm, S1 and S2 normal, no murmurs, rub, or gallop Abdomen: Soft, non-tender, bowel sounds active all four quadrants Extremities: Moves all extremities, atraumatic, no cyanosis, no clubbing present Pulses: Pulses palpable in all extremities Skin: Ulcer left calf small moist with slough and some granulation tissue under. Has some depth to it and is located on a scar tissue. No erythema, no odor, no discharge, no warmth. The ulcer is due to surgery and it is with fat layer exposed due to the depth - no structur es are seen. Has hyperpigmentation left leg. Lymph nodes: No cervical lymphadenopathy Neurologic: No gross motor/sensory deficits Assessment / Plan: Discussed wound care with Jimmy Scott, including average length of time for healing and th at we will be using various topical dressing, packing and wound care options over the course of the visit. Reviewed need for debridement, sometimes cultures or other studies that are n ecessary to assess pt for proper care and to promote wound healing. Jimmy verbalized underst anding and agreement and questions were answered to the best of my ability on today's visit. See problem list and nursing notes for planned dressing. PROCEDURE: Excisional debridement medically necessary to accelerate [...] layer exposed. Surgical wound non healing - due to duration and depth a wound culture was done and will apply Aquacel AG and wash with dakins. Will do an X ray.Please avoid any running water on the ulcer and eat with proteins. Patient will need to continue chronic treatment for the chronic conditions and will need to follow up with PCP a nd specialists. 2.Venous insufficiency - Will place 1 layer Tubi Tank Charger - if any pain in leg,toes, purple or cold toes please take the Tubi rolling mill plugger off! Keep legs elevated. Will order vascular studies. 2.HTN Follow up the blood pressure. Follow up with PCP. If blood pressure is elevated make an earlier appointment with PCP. Have a diet low in sodium. 3.GERD - FU with PCP Visit diagnoses: Ulcer left calf with fat layer exposed Surgical wound non healing Venous insufficiency HTN GERD LAUREEN VOGT MD 04/09/2017 I am evaluating this patient for their wound care needs. They will continue to be taken ca re of by their primary physician/Specialist. LAUREEN VOGT MD 04/09/2017 in this encounter Plan of Treatment +--------+---------+ + + + | Date | Type | Specialty | Care Team | Description | +--------+---------+ + + + | 06/13/ | Office | Wound Care | Teressa Su | | | 2018 | Visit | | [address] | | | | | | [address] | | | | | | [place] [address] | | | | | | [phone] | | | | | | | | | | | | Laureen Vogt MD | | | | | | [address] [facility] | | | | | | [place] [address] | | | | | | [phone] | | | | | | | | +--------+---------+ + + + + +--------+ + + | Name | Priori | Associated Diagnoses | Order Schedule | | | ty | | | + +--------+ + + | Ultrasound lower extremity reflux | Routin | Skin ulcer of left | Expected: | | bilateral | e | calf with fat layer | 04/09/2017, Expires: | | | | exposed ([facility]) | 01/07/2018 | + +--------+ + + as of this encounter Results Ultrasound WILL resting (05/09/2017 11:25 AM) + + + | Specimen | Performing Laboratory | + + + | | [facility] [address] [place] [address] | + + + + + | [...] + + | Derek, Rad Results In 05/09/2017 11:52 AM PDT HISTORY: 57 [...] | | | | | + + X-ray knee 3 views left (04/09/2017 12:12 PM) + + + | Specimen | Performing Laboratory | + + + | | [address] [address] | + + + + + | [...] | | | | | + -----+ Wound Culture (04/09/2017 11:00 AM) + + + + | Component | Value | Ref Range | + + + + | Specimen Description | OTHER | | + + + + | CULTURE | NO GROWTH 2 DAYS | | + + + + + + + | Specimen | Performing Laboratory | + + + | Wound - OT-w | [facility] [address] [place], | | source desc (F6) | [place] [address] | + + + in this encounter Visit Diagnoses + + | Diagnosis | + + | Skin ulcer of left calf with fat layer exposed (HCC) - Primary | + + | Essential hypertension | + + | Unspecified essential hypertension | + + | Gastroesophageal reflux disease, esophagitis presence not specified | + + | Non-healing surgical wound, initial encounter | + + | Venous insufficiency [...] | external solution Starting Tue | | 8 10:32 | | | | | 04/09/17 at 1031, For 1 dose, | | PST | | | | | Josefa Diaz : bogdan override | | | | | | + +--------+ +------+------+------+ +---+---+ | | | +---+---+ in this encounter"
--- OUTSIDE RECORDS SUMMARY | 2017-05-26 20:48 | XMS | Encounter Summary ---
Demographics + + + | Address | [address] | | | [place] [address] | + + + | Home Phone | | + + + | Preferred Language | Unknown | + + + | Marital Status | | + + + | Taoism Affiliation | Unknown | + + + | Race | Unknown | + + + | Ethnic Group | Unknown | + + + Author + + + | Author | [facility] | + + + | Organization | [facility] | + + + | Address | Unknown | + + + | Phone | Unavailable | + + + Support + + + + + | Name | Relationship | Address | Phone | + + + + + | Meka Scott | ECON | [address] | | | | | [place] | | | | | [address] | | + + + + + Care Team Providers + +------+ + | Care Stereo Compiler Name | Role | Phone | + +------+ + | Teressa Su | PCP | Unavailable | + +------+ + Reason for Visit MRI/CAT Scan (Routine) + +--------+ + + + + | Status | Reason | Specialty | Diagnoses / | Referred By | Referred To | | | | | Procedures | Contact | Contact | + +--------+ + + + + | Pending | | Radiology | Diagnoses | See, | | | Review | | | Pain | Medical | | | | | | Procedures | Record | | | | | | CT knee left | | | | | | | without | | | | | | | contrast | | | + +--------+ + + + + Encounter Details +--------+ + + + + | Date | Type | Department | Care Team | Description | +--------+ + + + + | 04/26/ | Hospital | [facility] | See, Medical | Pain | | 2017 | Encounter | [facility] | Record | | | | | RADIOLOGY [address] | | | | | | [address] | | | | | | [place] [address] | | | | | | [phone] | | | +--------+ + + + [...] 0 | 04/24/19 | | | (medical technologist chief) | instruction as | | | 18 [...] | | | 17 | | | [id number] units capsule | | | | | | + + + +---------+ + + as of this encounter Plan of Treatment +--------+---------+ + + + | Date | Type | Specialty | Care Team | Description | +--------+---------+ + + + | 06/13/ | Office | Wound Care | Teressa Su | | | 2017 | Visit | | [address] | | | | | | [address] | | | | | | [place] [address] | | | | | | [phone] | | | | | | | | | | | | Laureen Vogt MD | | | | | | [address] | | | | | | [place] [address] | | | | | | [phone] | | | | | | | | +--------+---------+ + + + as of this encounter Results CT knee left without contrast (04/25/2017 12:16 PM) + + + | Specimen | Performing Laboratory | + + + | | [facility] [address] [place] [address] | + + + + + | Narrative | + + | This is a non-reportable procedure without a radiologist report and is used for | | image storage only | + + in this encounter Visit Diagnoses + + | Diagnosis | + + | Pain | + + | Generalized pain | + +"
--- OUTSIDE RECORDS SUMMARY | 2017-05-26 20:48 | XMS | Encounter Summary ---
Demographics + + + | Address | [address] | | | [place] [address] | + + + | Home Phone | | + + + | Preferred Language | Unknown | + + + | Marital Status | | + + + | Anabaptism Affiliation | Unknown | + + + | Race | Unknown | + + + | Ethnic Group | Unknown | + + + Author + + + | Author | [facility] | + + + | Organization | [facility] | + + + | Address | Unknown | + + + | Phone | Unavailable | + + + Support + + + + + | Name | Relationship | Address | Phone | + + + + + | Meka Scott | ECON | [address] | | | | | [place] | | | | | [address] | | + + + + + Care Team Providers + +------+ + | Care Underwriting Sales Representative Name | Role | Phone | [...] + + | 04/26/ | Ancillary | [facility] | See, Medical | Pain | | 2018 | [facility] | Record | | | | | [address] | | | | | | [place] [address] | | | | | | [phone] | | | +--------+ + + + [...] 06/13/ | Office | Wound Care | Israelrandolph Teressa | | | 2017 | Visit | | [address] | | | | | | [address] | | | | | | [place] [address] | | | | | | [phone] | | | | | | | | | | | | Laureen Vogt MD | | | | | | [address] [facility] | | | | | | [place] [address] | | | | | | [phone] | | | | | | | | +--------+---------+ + + + as of this encounter Results CT knee left without contrast (04/25/2017 12:16 PM) + + + | Specimen | Performing Laboratory | + + + | | [facility] [address] [place] [address] | + + + + + | Narrative | + + | This is a non-reportable procedure without a radiologist report and is used for | | image storage only | + + in this encounter Visit Diagnoses + + | Diagnosis | + + | Pain | + + | Generalized pain | + +"
--- OUTSIDE RECORDS SUMMARY | 2017-05-26 20:48 | XMS | Encounter Summary ---
Demographics + + + | Address | [address] | | | [place] [address] | + + + | Home Phone | | + + + | Preferred Language | Unknown | + + + | Marital Status | | + + + | Yarsani Affiliation | Unknown | + + + | Race | Unknown | + + + | Ethnic Group | Unknown | + + + Author + + + | Author | [facility] | + + + | Organization | [facility] | + + + | Address | Unknown | + + + | Phone | Unavailable | + + + Support + + + + + | Name | Relationship | Address | Phone | + + + + + | Meka Scott | ECON | [address] | | | | | [place] | | | | | [address] | | + + + + + Care Team Providers + +------+ + | Care Home Theater Specialist Name | Role | Phone | + +------+ + | Teressa Su | PCP | Unavailable | + +------+ + Encounter Details +--------+ + + + + | Date | Type | Department | Care Team | Description | +--------+ + + + + | 04/24/ | Telephone | [facility] | Letha Arthur, | | | 2017 | | [facility] | [facility] DEPARTMENT | | | | | MEDICINE DAT | | | | | | [address] | | | | | | [place] | | | | | | [address] | | | | | | [phone] | | | +--------+ + + + [...] 2017 | Visit | | [address] | | | | | | [address] | | | | | | [place] [address] | | | | | | [phone] | | | | | | | | | | | | Laureen Vogt MD | | | | | | [address] [facility] | | | | | | [place] [address] | | | | | | [phone] | | | | | | | | +--------+---------+ + + + as of this encounter Visit Diagnoses Not on filein this encounter"
--- OUTSIDE RECORDS SUMMARY | 2017-05-26 20:48 | XMS | Encounter Summary ---
Demographics + + + | Address | [address] | | | [place] [address] | + + + | Home Phone | | + + + | Preferred Language | Unknown | + + + | Marital Status | | + + + | Mandaeism Affiliation | Unknown | + + + | Race | Unknown | + + + | Ethnic Group | Unknown | + + + Author + + + | Author | [facility] | + + + | Organization | [facility] | + + + | Address | Unknown | + + + | Phone | Unavailable | + + + Support + + + + + | Name | Relationship | Address | Phone | + + + + + | Meka Scott | ECON | [address] | | | | | [place] | | | | | [address] | | + + + + + Care Team Providers + +------+ + | Care Consultant Rn Name | Role | Phone | + +------+ + | Teressa Su | PCP | Unavailable | + +------+ + Encounter Details +--------+ + + + + | Date | Type | Department | Care Team | Description | +--------+ + + + + | 04/09/ | Hospital | [facility] | Laureen Vogt, | Skin ulcer of left | | 2018 | Encounter | [facility] | [address] | calf with fat layer | | | | Xray [address] | [place] [address] | exposed (HCC) | | | | [address] | [phone] | | | | | [place] [address] | | | | | | [phone] | | | +--------+ + + + [...] | | | 17 | | | [id number] units capsule | | | | | | + + + +---------+ + + as of this encounter Plan of Treatment +--------+---------+ + + + | Date | Type | Specialty | Care Team | Description | +--------+---------+ + + + | 06/13/ | Office | Wound Care | Teressa Su | | | 2018 | Visit | | [address] | | | | | | [address] | | | | | | [place] [address] | | | | | | [phone] | | | | | | | | | | | | Laureen Vogt MD | | | | | | [address] [facility] | | | | | | [place] [address] | | | | | | [phone] | | | | | | | | +--------+---------+ + + + as of this encounter Results X-ray knee 3 views left (04/09/2017 12:12 PM) + + + | Specimen | Performing Laboratory | + + + | | [address] [address] | + + + + + | [...] | Procedure Note | + -----+ | Raoul Reed Results In - 04/09/2017 12:43 PM PST [...] | | | | | + -----+ in this encounter Visit Diagnoses + + | Diagnosis | + + | Skin ulcer of left calf with fat layer exposed (HCC) | + + Admitting Diagnoses + + | Diagnosis | + + | Skin ulcer of left calf with fat layer exposed (HCC) | + +"
== END 2017-05-26 22:33 | disposition home or self-care (01) ==
LOC: ED 20:42
DX: L97.229 Non-pressure chronic ulcer of left calf with unspecified severity (principal); R78.81 Bacteremia; I10 Essential (primary) hypertension; Z87.891 Personal history of nicotine dependence; Z79.899 Other long term (current) drug therapy; Z79.82 Long term (current) use of aspirin
CPT/HCPCS: 99282

== ENCOUNTER 2022-05-05 12:50 | Emergency (ER) | payer BC ==
[~2022-05-05] VITALS: Ht 175.3 cm; Wt 99.8 kg
[2022-05-05] MEDS ORDERED: DOXYCYCLINE HY100 MG PO (13:11)
[2022-05-05] MEDS ORDERED: METFORMIN HCL500 MG PO (13:12)
[2022-05-05] MEDS ORDERED: GLIMEPIRIDE1 MG PO (13:12)
[2022-05-05] MEDS ORDERED: HYDROCORTISONE454 GM TOP (13:12)
[2022-05-05] MEDS ORDERED: ATORVASTATIN CA10 MG PO (13:12)
[2022-05-05] MEDS ORDERED: HYDROCODON-ACE1 EA10 PO (14:17)
== END 2022-05-05 14:23 | disposition home or self-care (01) ==
LOC: ED 12:50
DX: S83.92XA Sprain of unspecified site of left knee, initial encounter (principal); X50.1XXA Overexertion from prolonged static or awkward postures, initial encounter; I10 Essential (primary) hypertension; Z87.891 Personal history of nicotine dependence; Z88.1 Allergy status to other antibiotic agents; Z79.899 Other long term (current) drug therapy; Z79.84 Long term (current) use of oral hypoglycemic drugs; Z79.82 Long term (current) use of aspirin
CPT/HCPCS: 73560; 99283-25